=== PATIENT | female | born 1985 | race Caucasian/White ===

== ENCOUNTER 2022-12-02 09:29 | Outpatient (REF) | payer MEDICAID, SELFPAY ==
--- NOTE | ~2022-12-02 | XR_ITS ---
EXAMINATION: XR LUMBOSACRAL SPINE CLINICAL INFORMATION: Acute midline pain without sciatica. Sharp pain with certain movements. Patient states pain for 2 days. COMPARISON: None available. TECHNIQUE: Three views of the lumbosacral spine. FINDINGS: The vertebral bodies and posterior elements are normal. The disc spaces are preserved and the vertebral alignment is normal. The paraspinal soft tissues are normal. No spondylolisthesis. T-shaped IUD tilts toward the left of midline in the pelvis. XR/XR lumbar spine 2-3V IMPRESSION: Unremarkable examination.
== END 2022-12-02 09:30 | disposition home or self-care (01) ==
LOC: HO.HHCX 09:29
PROVIDERS: Visit Provider Emergency Medicine
DX: M54.50 Low back pain, unspecified (principal)
CPT/HCPCS: 72100

== ENCOUNTER 2022-12-04 10:36 | Outpatient (REF) | payer MEDICAID, SELFPAY ==
[2022-12-04 11:59] LABS: MANUAL DIFF FLAG NO
[2022-12-04 12:06] LABS: Basophils Percent Auto 0.4 % (0-2); Eosinophils Absolute Auto 0.2 X10*3/uL (0.0-0.4); Eosinophils Percent Auto 2.8 % (0-4); Hematocrit 45.3 % (37.0-47.0); Hemoglobin 15.2 g/dl (12.0-16.0); Imm Gran Abs Auto 0.03 X10*3/uL (0.00-0.03); Imm Gran Pct Auto 0.4 % (0.0-0.4); Lymphocytes Absolute Auto 2.2 X10*3/uL (1.2-4.9); Lymphocytes Percent Auto 27.3 % (20-40); Mean Corpuscular HGB Conc 33.6 g/dl (31.0-35.0); Mean Corpuscular Hemoglobin 31.3 pg (27.0-33.0); Mean Corpuscular Volume 93.2 fL (80.0-98.0); Mean Platelet Volume 10.4 fL (9.4-12.3); Monocytes Absolute Auto 0.6 X10*3/uL (0.1-1.2); Monocytes Percent Auto 7.5 % (2-11); Neutrophils Absolute Auto 4.9 x10*3/uL (2.0-8.3); Neutrophils Percent Auto 61.6 % (45-73); Platelet Count 270 X10*3/uL (160-400); Red Blood Count 4.86 X10*6/uL (4.20-5.50); Red Cell Distribution Width 12.7 % (11.0-16.0); White Blood Count 7.9 X10*3/uL (4.8-10.8)
[2022-12-04 12:17] LABS: Estimated Average Glucose 97 mg/dL; Hemoglobin A1C 107.5469 umol/L
[2022-12-04 13:01] LABS: Alanine Aminotransferase 13 U/L (0-31); Albumin Level 4.2 g/dL (3.5-5.0); Alkaline Phosphatase 68 U/L (39-117); Anion Gap 12 (12-20); Aspartate Amino Transferase 17 U/L (5-31); Bilirubin Total 0.2 mg/dL (0.0-1.0); Blood Urea Nitrogen 9 mg/dL (9-16); Calcium 9.5 mg/dL (8.4-10.2); Carbon Dioxide 23 mmol/L (22-29); Chloride 106 mmol/L (96-108); Cholesterol 186 mg/dL (<200); Estimated Glomerular Filt Rate > 60; Glucose Random 82 mg/dL (60-115); HDL Cholesterol 45 mg/dL (>40); LDL Cholesterol Calculated 126 mg/dL (<100); Potassium 3.9 mmol/L (3.3-5.1); Sodium 137 mmol/L (135-145); TSH reflex Free T4 1.01 uIU/mL (0.32-4.0); Total Protein 7.1 g/dL (6.5-8.0); Triglycerides 76 mg/dL (<150)
[2022-12-04 13:03] LABS: HBS Num1 5.89 mIU/mL (0-7.99); HBc Num1 0.07 S/CO (0.00-0.79); HBsAGNum1 0.28 S/CO (0.00-0.99); HIV AB/AG Nonreactive (Nonreactive); HIV Num 1 0.04 S/CO (0.00-0.99); Hepatitis B Core Antibody Nonreactive (Nonreactive); Hepatitis B Surface Antigen Negative (Negative); ~HepC Num1 0.04 S/CO (0.00-0.79); ~Hepatitis B Surface Antibody NONREACTIVE (Nonreactive); ~Hepatitis C Antibody Nonreactive (Nonreactive)
[2022-12-04 13:07] LABS: Syphilis Screen Nonreactive (Nonreactive)
[2022-12-04 17:13] LABS: CT PCR NOT DETECTED (Not Detect.); NG PCR NOT DETECTED (Not Detect.)
[2022-12-10 00:17] LABS: VITAMIN D (1,25 OH) D3 53 pg/mL; Vit D (1,25-Dihydroxy) Total 53 pg/mL (18-72); Vitamin D (1,25 OH) D2 <8 pg/mL
== END 2022-12-04 10:37 | disposition home or self-care (01) ==
LOC: HO.HHCL 10:36
PROVIDERS: Visit Provider Student in an Organized Health Care Education/Training Program
DX: Z00.00 Encounter for general adult medical examination without abnormal findings (principal)
CPT/HCPCS: 0353U; 80053; 80061; 82652; 83036; 84443; 85025; 86704; 86706; 86780; 86803; 87340; 87389

== ENCOUNTER 2023-01-06 17:40 | Emergency (ER) | payer MEDICAID, SELFPAY ==
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
[2023-01-06 17:51] VITALS: BP 125/75; PULSE 91; RESP 18; TEMP 37.2; O2SAT 97; BMI 25.2
== END 2023-01-06 18:58 | disposition home or self-care (01) ==
LOC: HO.ED 18:11
PROVIDERS: Emergency Provider Emergency Medicine; PCP Student in an Organized Health Care Education/Training Program
DX: S06.0X0A Concussion without loss of consciousness, initial encounter (principal); Y04.2XXA Assault by strike against or bumped into by another person, initial encounter; Y93.9 Activity, unspecified; Y92.89 Other specified places as the place of occurrence of the external cause; Y99.9 Unspecified external cause status
CPT/HCPCS: 99282

== ENCOUNTER 2023-07-05 16:03 | Emergency (ER) | payer MEDICAID, SELFPAY ==
--- NOTE | 2023-07-05 16:50 | ED_ITS ---
HPI - Animal Bite General Chief Complaint: Animal Bite Stated Complaint: dog bite Time Seen by Provider: 07/06/23 01:46 Source: patient Mode of arrival: ambulatory Limitations: no limitations History of Present Illness ED Provider: ERICKSON LAMBERT PA-C HPI narrative: 38-year-old female with past medical history significant for fibromyalgia, depression, anxiety, PTSD to the emergency department today for evaluation of dog bite sustained to left posterior thigh yesterday. She states that her neighbor's dog got off of the leash and ran up and bit the back of her left thigh. She does not personally know her neighbor and is unsure of whether or not the dog is fully vaccinated. She is requesting rabies vaccine. Her tetanus was updated approximately 1 year ago. Denies headache, fever, fatigue, dizziness. No other concerns at this time. Related Data Previous Rx's ?Medication ?Instructions ?Recorded amoxicillin 875 mg-potassium 1 tab PO BID 7 days #14 tabs 07/06/23 clavulanate 125 mg tablet Allergies Allergy/AdvReac Type Severity Reaction Status Date / Time No Known Allergies Allergy Verified 07/05/23 16:54 Review of Systems Review of Systems: Constitutional: No fever, chills, fatigue, night sweats, weight changes ENT/Mouth: No ear pain, hearing loss, nasal congestion, sinus pain, rhinorrhea, sore throat Eyes: No eye pain, swelling, redness, vision changes, discharge Cardio: No chest pain, palpitations, MARTINEZ, orthopnea, peripheral edema Pulm: No SOB, cough, sputum, wheezing, dyspnea, hemoptysis GI: No nausea, vomiting, hematemesis, abdominal pain, diarrhea, constipation, hematochezia, melena : No irregular bleeding, dysuria, frequency, urgency, hesitancy, hematuria, flank pain, urinary flow changes, urinary incontinence or retention MSK: No back pain, neck pain, joint pain, myalgias Skin: No lesions, rashes, +puncture wound to posterior left thigh Neuro: No weakness, numbness, paresthesias, LOC, dizziness, headache Psych: No anxiety/panic, depression, SI/HI, AH/VH All other systems reviewed and are negative. [facility] Past Medical History Attestation statement: The following information was validated with the patient. Source: old records reviewed and nursing notes reviewed Social History Social History Advance Directives: No Advance Directives Information Provided: Yes Physical Exam ED Vital Signs: Vital Signs - 24 hr 07/05/23 16:51 Temperature 98.0 F Pulse Rate 73 Respiratory Rate 16 Blood Pressure 136/73 Pulse Oximetry 98 Oxygen Delivery Method Room Air BMI result Body Mass Index 21.4 Vital signs stable, afebrile Const General: cooperative, healthy appearing, comfortable and no acute distress Orientation/consciousness: patient oriented x3 Limitations: no limitations HENMT Head: Yes normal to inspection, Yes No palpable skull fracture present, Yes normocephalic and Yes atraumatic Eyes General: appearance normal, both eyes and all related structures Conjunctivae: conjunctivae normal Sclerae: sclerae normal Pupils: Equal, round and reactive pupils present Neck Neck: Yes normal visual inspection, Yes full ROM, Yes no lymphadenopathy and Yes no meningeal signs Chest Chest palpation & inspection: normal inspection of the chest and normal palpation of entire chest wall Resp Effort & Inspection: normal respiratory effort and able to speak in complete sentences Auscultation: clear to auscultation bilaterally Cardio Rate: regular rate Rhythm: regular rhythm Skin Other: + puncture wound noted to proximal posterior left thigh with surrounding ecchymosis. No surrounding erythema. No active bleeding or discharge. Tender to palpation. No palpable warmth, fluctuance, deformity. Neuro General: patient oriented x3, gait normal, no meningeal signs and no focal motor deficits Cranial nerves: Yes Equal, round and reactive pupils present Gait exam (Neuro): Normal gait present Extrem Other: + see above Course Course Course Narrative: This is an RME: Additional HPI, ROS, PE not included below will be deferred to primary provider. RME assessment and note performed by: Deepa Jackson PA-C This is a [id number]-female, with a hx of fibromyalgia, depression, anxiety, PTSD here, who presents to the ER with complaints of dog bite to left posterior thigh yesterday. Function noted to posterior thigh, no active bleeding. Patient is unsure of vaccine status of the dog. Plan: Rabies series, abx Reevaluation(s) Reevaluation #1: 3057-- Rabies vaccination and immunoglobulin administered by RN. I did inject 2 mL of immunoglobulin directly into puncture wound. Patient will be given a dose of Augmentin in ED for prophylactic treatment. I am not concerned for cellulitis or deeper infection at this time. She has been provided with information caryl lowery outpatient follow-up for subsequent rabies vaccinations. Patient has remained stable throughout ED visit today. Discussed worrisome signs and symptoms and when to return to the ED. All questions answered at this time. Patient is agreeable with disposition and stable for discharge. Medications Administered Discontinued Medications Generic Name Dose Route Start Last Admin Trade Name Freq PRN Reason Stop Dose Admin Rabies Vaccine Human Diploid Cell 1 ml 07/06/23 01:53 07/06/23 02:07 Rabies Vaccine, Human Diploid (Imovax) 1 Ml Vial IM 07/06/23 01:54 1 ml .ONCE ONE Administration Medical Decision Making Medical Decision Making MDM Narrative: 38-year-old female with no significant past medical history presents to the emergency department today for evaluation of dog bite sustained to left posterior thigh yesterday. Vital signs are stable. Afebrile. She is nontoxic- appearing and in no acute distress. On exam, there are 2 puncture wounds noted to proximal posterior left thigh with surrounding ecchymoses. No surrounding erythema. Tender to palpation. No palpable warmth or fluctuance. No active bleeding or discharge. she is ambulating with steady gait. Patient is A&O x3 and acting appropriately. No excessive salivation. Differential diagnosis includes dog bite. Unlikely cellulitis, abscess, fracture, osteomyelitis. Plan for rabies vaccination/immune globulin and disposition. Differential Diagnosis Differential Diagnoses: The differential diagnosis associated with the presentation includes as above. Admission/Observation not indicated. Prescription Management I considered prescription management with: Pain Medication and Antibiotic (augmentin) Social Determinants Patient?s care significantly limited by Social Determinants of Health including: Other Social Determinant of Health Critical Care Time Critical Care Time Critical Care Time: Yes Total Critical Care Time: 35 Attestation: Critical care time in the amount of 35 minutes has been provided to the patient in terms of direct patient care, frequent reevaluation, review and interpretation of medical data and results, and management of potentially life- threatening conditions. This is all outside of any medical procedures. Discharge Plan Discharge Clinical Impression: Dog bite of thigh, Encounter for prophylactic administration of rabies immune globulin Patient Disposition: Home, Self-Care Instructions: Animal Bite (ED), Rabies (ED) Additional Instructions: You were evaluated in the ED today for evaluation of dog bite. You received a rabies vaccine today. You were given instructions on subsequent doses and follow-up. Your tetanus is already up-to-date and was not given today. Follow-up with PCP as needed. Augmentin is an antibiotic that has been sent to your pharmacy. Take this as prescribed for the next 7 days to prevent infection. Do not stop taking this early or skip any doses as this may cause infection to persist or worsen. [place] with [place] [facility] Upon discharge from the ED today, you will be contacted by the Infusion Center to schedule your follow up Rabies vaccines. You will need a total of 3 more injections. If for some reason you do not receive a call, please call the Infusion Center directly at [phone]. Follow up with your primary care provider after completion of the vaccine to have a titer drawn to ensure the vaccines effectiveness. Prescriptions: New amoxicillin-pot clavulanate 875-125 mg tablet 1 tab PO BID 7 Days Qty: 14 0RF Referrals: Emilia eMna MD [Primary Care Provider] - Print Language: Occitan
[2023-07-05 16:51] VITALS: BP 136/73; PULSE 73; RESP 16; TEMP 36.7; O2SAT 98; BMI 21.4
[2023-07-06] MEDS: Rabies Vaccine, Human Diploid (Imovax) 1 ML VIAL IM (02:07)
[2023-07-06] MEDS: Rabies Immune Globulin/PF 900 UNIT/3 ML VIAL 962 UNIT IM (02:14)
[2023-07-06] MEDS: Amoxicillin/Potassium Clav 875 MG TABLET PO (02:25)
[2023-07-06 02:38] VITALS: BP 118/63; PULSE 61; RESP 16; TEMP 36.7; O2SAT 98
== END 2023-07-06 02:52 | disposition home or self-care (01) ==
PROVIDERS: Emergency Provider Emergency Medicine Emergency Medical Services; PCP Student in an Organized Health Care Education/Training Program
DX: S71.152A Open bite, left thigh, initial encounter (principal); W54.0XXA Bitten by dog, initial encounter; Y93.9 Activity, unspecified; Y92.414 Local residential or business street as the place of occurrence of the external cause; Y99.9 Unspecified external cause status; Z20.3 Contact with and (suspected) exposure to rabies; Z23 Encounter for immunization
CPT/HCPCS: 90375; 90471; 90675; 96372; 99282; 99284

== ENCOUNTER 2023-07-29 10:00 | Outpatient (RCR) | payer MEDICAID, SELFPAY ==
[2023-07-11 13:04] VITALS: BMI 21.6
[2023-07-11 13:07] VITALS: BP 102/75; PULSE 96; RESP 18; TEMP 37.3; O2SAT 97
[2023-07-11] MEDS: Rabies Vaccine, Human Diploid (Imovax) 1 ML VIAL IM (13:13)
[2023-07-18] MEDS: Rabies Vaccine, Human Diploid (Imovax) 1 ML VIAL IM (14:07)
[2023-07-18 14:09] VITALS: BP 102/60; PULSE 74; RESP 16; TEMP 37.2; O2SAT 97
[2023-07-29 10:05] VITALS: BP 102/63; PULSE 81; RESP 16; TEMP 37.2; O2SAT 96
[2023-07-29] MEDS: Rabies Vaccine, Human Diploid (Imovax) 1 ML VIAL IM (10:06)
== END 2023-07-29 12:03 | disposition home or self-care (01) ==
LOC: HO.INF 10:00
PROVIDERS: Visit Provider Emergency Medicine Emergency Medical Services
DX: Z20.3 Contact with and (suspected) exposure to rabies (principal); S71.1 Open wound of thigh; W54.0XXD Bitten by dog, subsequent encounter
CPT/HCPCS: 90471; 90675

== ENCOUNTER 2023-09-16 11:49 | Outpatient (REF) | payer MEDICAID, SELFPAY ==
[2023-09-16 14:11] LABS: HCG Quantitative < 2 mIU/mL; Vitamin D 25-OH Total 41.2 ng/mL (>30)
[2023-09-17 03:47] LABS: CT PCR NOT DETECTED (Not Detect.); NG PCR NOT DETECTED (Not Detect.)
[2023-09-17 07:33] LABS: HBc Num1 0.18 S/CO (0.00-0.79); HBsAGNum1 0.25 S/CO (0.00-0.99); HIV AB/AG Nonreactive (Nonreactive); HIV Num 1 0.06 S/CO (0.00-0.99); Hepatitis B Core Antibody Nonreactive (Nonreactive); Hepatitis B Surface Antigen Negative (Negative); ~HepC Num1 0.09 S/CO (0.00-0.79); ~Hepatitis B Surface Antibody REACTIVE (Nonreactive); ~Hepatitis C Antibody Nonreactive (Nonreactive)
[2023-09-17 11:24] LABS: Bacterial Vaginosis PCR POSITIVE (Negative); Candida Group PCR NOT DETECTED (Not Detect); Candida glab krusei PCR NOT DETECTED (Not Detect); Trichomonas vaginalis PCR NOT DETECTED (Not Detect)
[2023-09-17 12:23] LABS: RPR Rapid Plasma Reagin NON-REACTIVE (NON-REACTIVE)
== END 2023-09-16 11:50 | disposition home or self-care (01) ==
LOC: HO.HHCL 11:49
PROVIDERS: Visit Provider Emergency Medicine
DX: N76.0 Acute vaginitis (principal); B96.89 Other specified bacterial agents as the cause of diseases classified elsewhere; N89.8 Other specified noninflammatory disorders of vagina
CPT/HCPCS: 0352U; 82306; 84702; 86592; 86704; 86706; 86803; 87086; 87340; 87389; 87491; 87591

== ENCOUNTER 2024-02-09 17:37 | Outpatient (REF) | payer MEDICAID, SELFPAY ==
[2024-02-10 05:14] LABS: CT PCR NOT DETECTED (Not Detect.); NG PCR NOT DETECTED (Not Detect.)
== END 2024-02-09 17:38 | disposition home or self-care (01) ==
LOC: HO.HHCLNP 17:37
PROVIDERS: Visit Provider Internal Medicine Geriatric Medicine
DX: R35.0 Frequency of micturition (principal)
CPT/HCPCS: 87086; 87491; 87591

== ENCOUNTER 2024-02-19 13:35 | Outpatient (REF) | payer MEDICAID, SELFPAY ==
[2024-02-20 02:06] LABS: CT PCR NOT DETECTED (Not Detect.); NG PCR NOT DETECTED (Not Detect.)
[2024-02-20 08:36] LABS: Bacterial Vaginosis PCR POSITIVE (Negative); Candida Group PCR NOT DETECTED (Not Detect); Candida glab krusei PCR NOT DETECTED (Not Detect); Trichomonas vaginalis PCR NOT DETECTED (Not Detect)
== END 2024-02-19 13:36 | disposition home or self-care (01) ==
LOC: HO.HHCLNP 13:35
PROVIDERS: Visit Provider Family Medicine
DX: N89.8 Other specified noninflammatory disorders of vagina (principal)
CPT/HCPCS: 81515; 87086; 87491; 87591

== ENCOUNTER 2024-04-05 13:30 | Outpatient (AMB) | payer MEDICAID, SELFPAY ==
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
[2024-04-05 14:06] VITALS: BP 110/60; PULSE 66; RESP 19; O2SAT 98
--- OUTSIDE RECORDS SUMMARY | 2024-04-05 15:28 | XMS_ITS | Encounter Summary ---
Author Organization [facility] Address [facility] [place] [address] Care Team Providers Care Waterproof Bag Cutting Machine Operator Name Role Phone Scotty Cruz MD Primary Care Provider Unavailab Teri Toribio MD Primary Care Provider Un available Encounter Details Date Type Department Care Team Description 09/08/2013 NETWORK INFRASTRUCTURE ARCHITECT/[facility] Report Medical Records [address] [place] [address] Abstract, Provider Social History Tobacco Use Types Packs/Day Years Used Date Smoking Tobacco: Every Day Cigarettes 0.3 16 Alcohol Use Standard Drinks/Week Comments Yes 0 (1 standard drink = 0.6 oz pur e alcohol) Sex Assigned at Date Recorded Not on file documented as of this encounter Plan of Treatment Not on file documented as of this encounter Visit Diagnoses Not on filedocumented in this encounter Care Teams Waterproof Bag Cutting Machine Operator Relationship Specialty Start Date End Date Scotty Cruz MD PCP - General Internal Medicine 01/21/12 01/20/14 Teri Doran MD PCP - General Internal Medicine 01/21/14 documented as of this encounter
--- OUTSIDE RECORDS SUMMARY | 2024-04-05 15:28 | XMS_ITS | Encounter Summary ---
Author Organization [facility] Address [address] [place] [address] Care Team Providers Care Rubber Covering Machine Operator Name Role Phone Scotty Cruz MD Primary Care Provider Teri Manirque MD Primary Care Provider Un available Reason for Visit * Reason Onset Date Comments Form 11/15/2013 Encounter Details Date Type Department Care Team Description 11/15/2013 Telephone Medicine/Pediatrics - [address] [phone] Scotty Cruz MD Form Social History Tobacco Use Types Packs/Day Years Used Date Smoking Tobacco: Every Day Cigarettes 0.3 16 Alcohol Use Standard Drinks/Week Comments Yes 0 (1 standard drink = 0.6 oz pur e alcohol) Sex Assigned at Date Recorded Not on file documented as of this encounter Miscellaneous Notes * Telephone Encounter - Scotty Cruz MD - 11/15/2013 10:09 AM EDT Form completed. * Telephone Encounter - Carol Forbes - 11/15/2013 9:27 AM EDT Pt walked in needing letter indicated in 11/11 encounter, pt still waiting for form and letter (starting 10/19/13 stating mentally and emotionally incapacitated to go to work ), pt states she needs today . 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
--- OUTSIDE RECORDS SUMMARY | 2024-04-05 15:28 | XMS_ITS | Encounter Summary ---
Author Organization [facility] Address [facility] [place] [address] Care Team Providers Care Electric Transfer Operator Name Role Phone Teri Doran MD Primary Care Provider Un available Encounter Details Date Type Department Care Team Description 01/31/2015 RELIEF COOK/[facility] Report Medical Records [address] [place] [address] Abstract, Provider Social History Tobacco Use Types Packs/Day Years Used Date Smoking Tobacco: Some Days Cigarettes 0.3 16 Alcohol Use Standard Drinks/Week Comments No 0 (1 standard drink = 0.6 oz pur e alcohol) Sex Assigned at Date Recorded Not on file documented as of this encounter Plan of Treatment Not on file documented as of this encounter Visit Diagnoses Not on filedocumented in this encounter Care Teams Electric Transfer Operator Relationship Specialty Start Date End Date Teri Doran MD PCP - General Internal Medicine 01/21/14 documented as of this encounter
--- OUTSIDE RECORDS SUMMARY | 2024-04-05 15:28 | XMS_ITS | Encounter Summary ---
Author Organization [facility] Address [facility] [place] [address] Care Team Providers Care Project Administrator Name Role Phone Teri Doran MD Primary Care Provider Un available Encounter Details Date Type Department Care Team Description 11/21/2015 [facility] Medical Records [address] [place] [address] Abstract, Provider Social History Tobacco Use Types [...] on filedocumented in this encounter Care Teams Project Administrator Relationship Specialty Start Date End Date Teri Doran MD PCP - General Internal Medicine 01/21/14 documented as of this encounter
--- OUTSIDE RECORDS SUMMARY | 2024-04-05 15:28 | XMS_ITS | Encounter Summary ---
Author Organization [facility] Address [facility] [place] [address] Care Team Providers Care Dental Services Director Name Role Phone Teri Doran MD Primary Care Provider Un available Encounter Details Date Type Department Care Team Description 05/17/2015 Fifth Grade Teacher Report Medical Records [address] [place] [address] Waqas Chase MD Social History Tobacco Use Types Packs/Day Years [...] on filedocumented in this encounter Care Teams Dental Services Director Relationship Specialty Start Date End Date Teri Doran MD PCP - General Internal Medicine 01/21/14 documented as of this encounter
--- OUTSIDE RECORDS SUMMARY | 2024-04-05 15:28 | XMS_ITS | Encounter Summary ---
Author Organization [facility] Address [facility] [place] [address] Care Team Providers Care Plate Worker Helper Name Role Phone Scotty Curz MD Primary Care Provider Unavailab Teri Toribio MD Primary Care Provider Un available Encounter Details Date Type Department Care Team Description 05/28/2013 DENSITY CONTROL PUNCHER/[facility] Report Medical Records [address] [place] [address] Abstract, Provider Social History Tobacco Use Types [...] on filedocumented in this encounter Care Teams Plate Worker Helper Relationship Specialty Start Date End Date Scotty Cruz MD PCP - General Internal Medicine 01/21/12 01/20/14 Teri Doran MD PCP - General Internal Medicine 01/21/14 documented as of this encounter
--- OUTSIDE RECORDS SUMMARY | 2024-04-05 15:28 | XMS_ITS | Encounter Summary ---
Author Organization [facility] Address [facility] [place] [address] Care Team Providers Care Account Manager Employee Benefits Name Role Phone Teri Doran MD Primary Care Provider Un available Encounter Details Date Type Department Care Team Description 09/14/2014 INTERNATIONAL MARKETING MANAGER/[facility] Report Medical Records [address] [place] [address] Abstract, Provider Social History Tobacco Use Types [...] on filedocumented in this encounter Care Teams Account Manager Employee Benefits Relationship Specialty Start Date End Date Teri Doran MD PCP - General Internal Medicine 01/21/14 documented as of this encounter
--- OUTSIDE RECORDS SUMMARY | 2024-04-05 15:28 | XMS_ITS | Encounter Summary ---
Author Organization [facility] Address [address] [place] [address] Care Team Providers Care Railroad Design Consultant Name Role Phone Scotty Cruz MD Primary Care Provider Teri Manrique MD Primary Care Provider Un available Reason for Visit * Reason Onset Date Comments Medication 11/10/2013 Encounter Details Date Type Department Care Team Description 11/10/2013 Telephone Medicine/Pediatrics - [address] [phone] Scotty Cruz MD Medication Social History Tobacco Use Types Packs/Day Years Used Date Smoking Tobacco: Every Day Cigarettes 0.3 16 Alcohol Use Standard Drinks/Week Comments Yes 0 (1 standard drink = 0.6 oz pur e alcohol) Sex Assigned at Date Recorded Not on file documented as of this encounter Miscellaneous Notes * Telephone Encounter - Lauren Ramos M.A. - 11/10/2013 10:59 AM EDT FYI to Dr. Cruz. * Telephone Encounter - Lashonda Dobson - 11/10/2013 10:47 AM EDT Patient has contract for her pain meds. Her normal pharmacy does not have her oxycodone 5/325 in stock. She normally fills at [facility]. She is bringing her prescription to [facility]. FYI documented in this encounter Plan of Treatment Not on file documented as of this encounter Visit Diagnoses Not on filedocumented in this encounter Care Teams Railroad Design Consultant Relationship Specialty Start Date End Date Scotty Cruz MD PCP - General Internal Medicine 01/21/12 01/20/14 Teri Doran MD PCP - General Internal Medicine 01/21/14 documented as of this encounter
--- OUTSIDE RECORDS SUMMARY | 2024-04-05 15:28 | XMS_ITS | Encounter Summary ---
Author Organization [facility] Address [address] [place] [address] Care Team Providers Care Pension Fund Manager Name Role Phone Scotty Cruz MD Primary Care Provider Unavailab Teri Toribio MD Primary Care Provider Un available Encounter Details Date Type Department Care Team Description 01/10/2014 Orders Only Medicine/Pediatrics - [address] [phone] Scotty Cruz MD Chronic back pain (Primary Dx) Social History Tobacco Use Types Packs/Day Years Used Date Smoking Tobacco: Every Day Cigarettes 0.3 16 Alcohol Use Standard Drinks/Week Comments No 0 (1 standard drink = 0.6 oz pur e alcohol) Sex Assigned at Date Recorded Not on file documented as of this encounter Plan of Treatment Not on file documented as of this encounter Visit Diagnoses Diagnosis Chronic back pain- Primary Backache, unspecified documented in this encounter Care Teams Pension Fund Manager Relationship Specialty Start Date End Date Scotty Cruz MD PCP - General Internal Medicine 01/21/12 01/20/14 Teri Doran MD PCP - General Internal Medicine 01/21/14 documented as of this encounter
--- OUTSIDE RECORDS SUMMARY | 2024-04-05 15:28 | XMS_ITS | Encounter Summary ---
Author Organization [facility] Address [facility] [place] [address] Care Team Providers Care Song Plugger Name Role Phone Scotty Cruz MD Primary Care Provider Unavailab Teri Toribio MD Primary Care Provider Un available Encounter Details Date Type Department Care Team Description 07/20/2012 R D Manager Report Medical Records [address] [place] [address] Social History Tobacco Use Types Packs/Day Years [...] on filedocumented in this encounter Care Teams Song Plugger Relationship Specialty Start Date End Date Scotty Cruz MD PCP - General Internal Medicine 01/21/12 01/20/14 Teri Doran MD PCP - General Internal Medicine 01/21/14 documented as of this encounter
--- OUTSIDE RECORDS SUMMARY | 2024-04-05 15:28 | XMS_ITS | Encounter Summary ---
Author Organization [facility] Address [address] [place] [address] Care Team Providers Care Linking Machine Operator Name Role Phone Teri Doran MD Primary Care Provider Un available Encounter Details Date Type Department Care Team Description 04/28/2018 Casino Floorperson Report Medical Records [address] [place] [address] Services, [facility] [address] [place] [address] Social History Tobacco Use Types Packs/Day Years Used Date Smoking Tobacco: Some Days Cigarettes 0.3 16 Smokeless Tobacco: Former Alcohol Use Standard Drinks/Week Comments No 0 (1 standard drink = 0.6 oz pur e alcohol) Sex Assigned at Date Recorded Not on file documented as of this encounter Plan of Treatment Not on file documented as of this encounter Visit Diagnoses Not on filedocumented in this encounter Care Teams Linking Machine Operator Relationship Specialty Start Date End Date Teri Doran MD PCP - General Internal Medicine 01/21/14 documented as of this encounter
--- OUTSIDE RECORDS SUMMARY | 2024-04-05 15:28 | XMS_ITS | Encounter Summary ---
Author Organization [facility] Address [facility] [place] [address] Care Team Providers Care Nissan Sales Consultant Name Role Phone Teri Doran MD Primary Care Provider Un available Encounter Details Date Type Department Care Team Description 02/04/2014 SHERIFF'S OFFICER/[facility] Report Medical Records [address] [place] [address] Abstract, Provider Social History Tobacco Use Types [...] on filedocumented in this encounter Care Teams Nissan Sales Consultant Relationship Specialty Start Date End Date Teri Doran MD PCP - General Internal Medicine 01/21/14 documented as of this encounter
--- OUTSIDE RECORDS SUMMARY | 2024-04-05 15:28 | XMS_ITS | Encounter Summary ---
Author Organization [facility] Address [address] [place] [address] Care Team Providers Care Latex Dipper Name Role Phone Teri Doran MD Primary Care Provider Un available Reason for Visit * Reason Onset Date Comments Medication 07/11/2016 Encounter Details Date Type Department Care Team Description 07/11/2016 Telephone Physiatry - [place] [address] [place] [address] Shady Lee, Medication Social History Tobacco Use Types Packs/Day Years Used Date Smoking Tobacco: Some Days Cigarettes 0.3 16 Alcohol Use Standard Drinks/Week Comments No 0 (1 standard drink = 0.6 oz pur e alcohol) Sex Assigned at Date Recorded Not on file documented as of this encounter Miscellaneous Notes * Telephone Encounter - Tyra Glasgow - 07/11/2016 1:40 PM EDT Error please close documented in this encounter Plan of Treatment Not on file documented as of this encounter Visit Diagnoses Not on filedocumented in this encounter Care Teams Latex Dipper Relationship Specialty Start Date End Date Teri Doran MD PCP - General Internal Medicine 01/21/14 documented as of this encounter
== END 2024-04-05 14:17 | disposition home or self-care (01) ==
PROVIDERS: PCP Student in an Organized Health Care Education/Training Program; Visit Provider Nurse Practitioner Psychiatric/Mental Health
DX: Z51.81 Encounter for therapeutic drug level monitoring (principal)

== ENCOUNTER → 2024-04-05 13:30 | Outpatient (BNVA) | payer MEDICAID, SELFPAY | PROVIDERS: PCP Student in an Organized Health Care Education/Training Program; Visit Provider Nurse Practitioner Psychiatric/Mental Health | DX: F14.10 Cocaine abuse, uncomplicated (principal) | CPT/HCPCS: 80307 ==

== ENCOUNTER 2024-04-05 19:46 | Emergency (ER) | payer MEDICAID, SELFPAY ==
--- NOTE | 2024-04-05 | ECG_ITS ---
Test Reason : PALPITATIONS Blood Pressure : */* mmHG Vent. Rate : 91 BPM Atrial Rate : 91 BPM P-R Int : 148 ms QRS Dur : 82 ms QT Int : 338 ms P-R-T Axes : 69 52 43 degrees QTcB Int : 415 ms Normal sinus rhythm Normal ECG No previous ECGs available Referred By: Rajendra Lee Electronically Signed By: POPEYE BARAKAT
[2024-04-05 19:54] VITALS: BP 106/64; PULSE 104; O2SAT 100
[2024-04-05 20:03] VITALS: BP 111/72; PULSE 90; RESP 20; TEMP 36.3; O2SAT 99; BMI 28.3
--- NOTE | 2024-04-05 20:04 | ED_ITS ---
HPI - Arrhythmia/Palpitations General Chief Complaint: Dyspnea Stated Complaint: SOB AND PALPITPATIONS Time Seen by Provider: 04/05/24 19:52 Source: patient Mode of arrival: ambulatory Limitations: no limitations History of Present Illness ED Provider: HPI narrative: Patient's with increased anxiety under increased stress was feeling very anxious palpitation around 19:00 window to walk-in clinic patient does have a court date next week for her daughter and has a DCF visit this week on arrival patient was sinus rhythm heart rate 90 beats per minute feeling much better wants to go back home Related Data Previous Rx's ?Medication ?Instructions ?Recorded amoxicillin 875 mg-potassium 1 tab PO BID 7 days #14 tabs 07/06/23 clavulanate 125 mg tablet Allergies Allergy/AdvReac Type Severity Reaction Status Date / Time No Known Allergies Allergy Verified 04/05/24 20:07 Review of Systems Review of Systems: Yes all other systems are reviewed and are negative [facility] Social History Social History Advance Directives: No Advance Directives Information Provided: No Physical Exam Vital Signs: Vital Signs: Last Vital Signs Temp 97.4 F 04/05/24 20:29 Pulse 90 04/05/24 20:29 Resp 20 04/05/24 20:29 BP 111/72 04/05/24 20:29 Pulse Ox 99 04/05/24 20:29 O2 Del Method Room Air 04/05/24 20:29 BMI result Body Mass Index 28.3 Appearance: Alert. Oriented X3. No acute distress. Anxious Eyes: PERRLA, No Nystagmus ENT: Pharynx normal. Oral Mucosa moist Neck: Normal inspection. Neck supple. CVS: Normal heart rate and rhythm. Pulses normal. Respiratory: No respiratory distress. Equal air entry bilateral, no wheezing/rales/rhonchi Abdomen: Soft and nontender. Bowel sounds are present, no mass palpable, no CVA tenderness Skin: Skin warm and dry. Normal skin color. Normal skin turgor. Extremities: No lower extremity edema. No calf tenderness Neuro: Oriented X 3. No motor deficit. No sensory deficit.No cerebellar signs , cranial nerves II-XII intact Medical Decision Making Medical Decision Making MDM Narrative: Patient's anxiety and palpitation normal sinus rhythm at this time patient is feel relax will like to go home and follow with therapist Independent Interpretation I performed an independent interpretation of an: EKG Interpretation: Normal sinus rhythm ventricular rate 91 beats per minute normal intervals normal axis no acute STT wave changes no acute ischemia Discharge Plan Discharge Clinical Impression: Anxiety Patient Disposition: Home, Self-Care Instructions: Anxiety (ED) Additional Instructions: Continue to take your medication and follow up with your PCP Prescriptions: No Action amoxicillin-pot clavulanate 875-125 mg tablet 1 tab PO BID 7 Days Qty: 14 0RF Interventions: ED Discharge Assessment Last Done: 04/05/24 20:29 Discharge Date/Time: 04/05/24 20:30 Print Language: East Timorese
--- NOTE | 2024-04-05 20:16 | PC.NURSE ---
to bedside evaluating patient. Patient reports that her palpitations have stopped. Anxiety has been high this week due to upcoming court date and DCF/visitation appointment tomorrow. Has been living in a retirement on [facility] in [place] for 3 years, will be moving out within the next 6 months. Lives there with her 18 year old son. EKG unremarkable. Denies pain. Per , plan to discharge home. Curfew at 9pm for retirement.
[2024-04-05 20:29] VITALS: BP 111/72; PULSE 90; RESP 20; TEMP 36.3; O2SAT 99
== END 2024-04-05 20:30 | disposition home or self-care (01) ==
LOC: HO.ED 20:28
PROVIDERS: Emergency Provider Internal Medicine; PCP Student in an Organized Health Care Education/Training Program
DX: F41.9 Anxiety disorder, unspecified (principal); R06.02 Shortness of breath; R00.2 Palpitations
CPT/HCPCS: 93005; 99283

== ENCOUNTER → 2024-04-05 20:02 | Outpatient (BNV) | payer MEDICAID, SELFPAY | PROVIDERS: Emergency Provider Internal Medicine; PCP Student in an Organized Health Care Education/Training Program; Visit Provider Internal Medicine | DX: R00.2 Palpitations (principal) | CPT/HCPCS: 93010 ==

== ENCOUNTER 2024-04-14 14:13 | Outpatient (REF) | payer MEDICAID, SELFPAY ==
--- NOTE | ~2024-04-14 | XR_ITS ---
EXAMINATION: XR KNEE, LEFT CLINICAL INFORMATION: PAIN COMPARISON: Atraumatic left knee pain TECHNIQUE: Three views of the left knee. FINDINGS: No fracture or joint effusion. Alignment is anatomic. Joint spaces are maintained. No abnormal soft tissue calcification. XR/XR knee LT 3V IMPRESSION: Normal left knee. Electronically signed by: Chase Willis MD 04/14/2024 02:40 PM EST
--- OUTSIDE RECORDS SUMMARY | 2024-04-14 17:09 | XMS_ITS | Encounter Summary ---
Author Organization [facility] Address [facility] [place] [address] Care Team Providers Care Sql Programmer Analyst Name Role Phone Teri Doran MD Primary Care Provider Un available Encounter Details Date Type Department Care Team Description 02/04/2014 NUMERICAL CONTROL TOOL PROGRAMMER/[facility] Report Medical Records [address] [place] [address] Abstract, Provider Social History Tobacco Use Types [...] on filedocumented in this encounter Care Teams Sql Programmer Analyst Relationship Specialty Start Date End Date Teri Doran MD PCP - General Internal Medicine 01/21/14 documented as of this encounter
--- OUTSIDE RECORDS SUMMARY | 2024-04-14 17:09 | XMS_ITS | Encounter Summary ---
Author Organization [facility] Address [address] [place] [address] Care Team Providers Care Vp Security Name Role Phone Scotty Cruz MD Primary Care Provider Unavailab Teri Toribio MD Primary Care Provider Un available Encounter Details Date Type Department Care Team Description 01/10/2014 Orders Only Medicine/Pediatrics - [address] [phone] Scotty Cruz MD Chronic back pain (Primary [...] unspecified documented in this encounter Care Teams Vp Security Relationship Specialty Start Date End Date Scotty Cruz MD PCP - General Internal Medicine 01/21/12 01/20/14 Teri Doran MD PCP - General Internal Medicine 01/21/14 documented as of this encounter
--- OUTSIDE RECORDS SUMMARY | 2024-04-14 17:09 | XMS_ITS | Encounter Summary ---
Author Organization [facility] Address [address] [place] [address] Care Team Providers Care Mva Reactor Operator Head Name Role Phone Teri Doran MD Primary Care Provider Un available Encounter Details Date Type Department Care Team Description 06/15/2018 Release of Information Medical Records [address] [place] [address] Abstract, Provider Social History Tobacco Use Types [...] on filedocumented in this encounter Care Teams Mva Reactor Operator Head Relationship Specialty Start Date End Date Teri Doran MD PCP - General Internal Medicine 01/21/14 documented as of this encounter
--- OUTSIDE RECORDS SUMMARY | 2024-04-14 17:09 | XMS_ITS | Encounter Summary ---
Author Organization [facility] Address [facility] [place] [address] Care Team Providers Care Software Applications Developer Name Role Phone Scotty Cruz MD Primary Care Provider Unavailab Teri Toribio MD Primary Care Provider Un available Encounter Details Date Type Department Care Team Description 05/28/2013 SOLAR THERMAL TECHNICIAN/[facility] Report Medical Records [address] [place] [address] Abstract, Provider Social History Tobacco Use Types [...] on filedocumented in this encounter Care Teams Software Applications Developer Relationship Specialty Start Date End Date Scotty Cruz MD PCP - General Internal Medicine 01/21/12 01/20/14 Teri Doran MD PCP - General Internal Medicine 01/21/14 documented as of this encounter
--- OUTSIDE RECORDS SUMMARY | 2024-04-14 17:09 | XMS_ITS | Encounter Summary ---
Author Organization [employer] Address [address] [facility] 7t [place] [address] Care Team Providers Care Bow Maker Gift Wrapping Name Role Phone Emilia Mena MD Primary Care Pro vider Reason for Visit * Reason Comments Cough Encounter Details Date Type Department Care Team ([facility] st Contact Info) Description 04/05/2024 6:00 PM EST Office Visit [facility] [address] [place] [address] Nancy Mcbride MD [address] [place], [place] [phone] Viral URI with cough (Primary Dx); Sore throat Social History Tobacco Use Types Packs/Day Years Used Date Smoking Tobacco: Every Day Cigarettes 1 27 Passive Smoke Exposure: Current Smokeless Tobacco: Never Comments:Started smoking 10 years of age ,smoking 10 to 20 cig a day ,smoking for 27 years , PQT a day 20.25 pack-years. Alcohol Use Standard Drinks/Week Comments Never 0 (1 standard drink = 0.6 oz pur e alcohol) Depression Answer Date Recorded Patient Health Questionnaire-9 Score 13 03/16/2024 Patient Health Questionnaire-9 Score 13 03/16/2024 Last PHQ-9: Questionnaire Data Not on file 0 03/16/2024 Housing Stability Answer Date Recorded What is your housing situation today? I do not have housing (Staying with others, in a hotel, in a nursing home, living outside on the street, on a beach, in a car, or in a park 11/20/[address] you li ve. Do you have problems with any of the following? Pests such as bugs, ants, or mice 11/20/2022 Food Insecurity Answer Date Recorded Within the past 12 months, y ou worried that your food would run out before you got money to buy more: Sometimes True 2023 Within the past 12 months,th e food you bought just didn't last and you didn't have enough money to get more: Sometimes True 04/01/2023 Transportation Answer Date Recorded In the past 12 months, has l ack of transportation kept you from medical appts, meetings, work or from getting things needed for daily living? Yes, it has kept me from medical appointments or getting medications. 04/01/2023 Utilities Answer Date Recorded In the past 12 months, has t he electric, gas, oil or water company threatened to shut off services in your home? No 12/02/2022 Depression Answer Date Recorded Patient Health Questionnaire-2 Score 3 03/16/2024 Comments No Sex and Gender Information Value Date Recorded Sex Assigned at Female 09/16/2022 2:23 PM EDT Legal Sex Female 2:22 PM EDT Gender Identity Female 09/16/2022 2:23 PM EDT Sexual Orientation Bisexual 12/04/2022 9: 43 AM EDT documented as of this encounter Last Filed Vital Signs Vital Sign Reading Time Taken Comments Blood Pressure 129/92 04/05/2024 6:16 PM EST Pulse 105 04/05/2024 6:16 PM EST Temperature 36.8 ??C (98.2 ??F) 04/05/2024 6:16 PM ES T Respiratory Rate 21 04/05/2024 6:16 PM EST Oxygen Saturation 99% 04/05/2024 6:16 PM EST Inhaled Oxygen Concentration - - Weight 60.3 kg (133 lb) 04/05/2024 6:16 PM EST Height 149.9 cm (4' 11 ) 04/05/2024 6:16 PM EST Body Mass Index 26.86 04/05/2024 6:16 PM EST documented in this encounter Progress Notes * Nancy Mcbride MD - 04/05/2024 6:00 PM EST Subjective Patient ID: Alie Kearney is a 38 y.o. female who presents for Cough. Cough This is a new problem. The current episode started in the past 7 days. The cough is Non-productive.Associated symptoms include myalgias and nasal congestion. Pertinent negatives include no chest pain, chills, ear congestion, ear pain, fever, headaches, heartburn, hemoptysis, postnasal drip, rash, rhinorrhea, sore throat, shortness of breath, sweats, weight loss or wheezing. Associated symptoms comments: Subjective fever. . The symptoms are aggravated by cold air. Risk factors for lung disease include smoking/tobacco exposure. Son has similar symptoms. Patient Active Problem List Diagnosis Asthma Cervical intraepithelial neoplasia grade 2 Posttraumatic stress disorder Diabetes, gestational Fibromyalgia Insomnia Tobacco abuse disorder Hemorrhoids GATO (generalized anxiety disorder) Health care maintenance [facility] problems Upper respiratory symptom Moderate depressive disorder Panic attacks Current Outpatient Medications on File Prior to Visit Medication Sig Dispense Refill albuterol 108 (90 Base) MCG/ACT inhaler Inhale 1 puff every 6 (six) hours if needed for wheezing. 18 g 2 DULoxetine (Cymbalta) [address] capsule TAKE 1 CAPSULE BY MOUTH EVERY DAY IN THE MORNING 90 capsule 0 Levonorgestrel 20 MCG/DAY intrauterine device 1 each by Intrauterine route. loratadine (Claritin) 10 MG tablet Take 1 tablet (10 mg) by mouth Once per day. 30 tablet 0 pregabalin (Lyrica) 300 MG capsule TAKE 1 CAPSULE BY MOUTH TWICE DAILY 60 capsule 2 topiramate (Topamax) 25 MG tablet Take 1 tablet (25 mg) by mouth Once per day for 7 days. 7 tablet 0 No current facility-administered medications on file prior to visit. Review of Systems Constitutional: Negative for chills, fever and weight loss. HENT: Negative for ear pain, postnasal drip, rhinorrhea and sore throat. Respiratory: Positive for cough. Negative for hemoptysis, shortness of breath and wheezing. Cardiovascular: Negative for chest pain. Gastrointestinal: Negative for heartburn. Musculoskeletal: Positive for myalgias. Skin: Negative for rash. Neurological: Negative for headaches. Objective BP (!) 129/92 (BP Location: Right arm, Patient Position: Sitting, BP Cuff Size: Adult) Pulse 105 Temp 98.2 ??F (36.8 ??C) (Oral) Resp 21 Ht 4' 11 (1.499 m) Wt 133 lb (60.3 kg) SpO2 99% BMI 26.86 kg/m?? Physical Exam Constitutional: General: She is not in acute distress. Appearance: Normal appearance. She is not ill-appearing, toxic-appearing or diaphoretic. HENT: Head: Normocephalic. Nose: Nose normal. Cardiovascular: Rate and Rhythm: Normal rate. Pulmonary: Effort: Pulmonary effort is normal. Musculoskeletal: Cervical back: Normal range of motion. Neurological: General: No focal deficit present. Mental Status: She is alert. Assessment/Plan Diagnoses and all orders for this visit: Viral URI with cough Comments: Supportive care: fluids, rest at home, Tea w/ honey Call the office if the symtpoms are worse of not resolved in the next week or so. Sore throat - POCT Rapid Covid-19 BinaxNOW - POCT Rapid Influenza A FREED ID NOW - POCT Rapid Influenza B FREED ID NOW - POCT Rapid Strep A FREED ID NOW documented in this encounter Plan of Treatment Not on file documented as of this encounter Procedures Procedure Name Priority Date/Time Associated Diagnosis Comments POCT INFLUENZA A (ID NOW RAPID MOLECULAR) Routine 04/05/2024 6:23 PM EST Sore throat POCT INFLUENZA B (ID NOW RAPID MOLECULAR) Routine 04/05/2024 6:22 PM EST Sore throat POC FREED ID NOW STREP A Routine 04/05/2024 6:21 PM EST Sore throat POCT RAPID COVID ANTIGEN Routine 04/05/2024 6:21 PM EST Sore throat documented in this encounter Results * POCT Rapid Influenza A FREED ID NOW (04/05/2024 6:23 PM EST) Influenza A Negative Negative, Indeterminate [facility] QC Media Lot # [id number] [facility] Lot# Expiration Date [facility] Swab 04/05/2024 6:23 PM EST Nancy Mcbride MD POINT OF CARE TEST ENTER/ED IT ORDERABLES Final Result Performing Organization Address [facility] Co de Phone Number [facility] [address] [place] [phone] * POCT Rapid Influenza B FREED ID NOW (04/05/2024 6:22 PM EST) [facility] Influenza B Negative Negative, Indeterminate [facility] QC Media Lot # [id number] [facility] Lot# Expiration Date [facility] Swab 04/05/2024 6:22 PM EST Nancy Mcbride MD POINT OF CARE TEST ENTER/ED IT ORDERABLES Final Result Performing Organization Address [facility] Co de Phone Number [facility] [address] [place] [phone] * POCT Rapid Strep A FREED ID NOW (04/05/2024 6:21 PM EST) [facility] Rapid Strep A Screen Negative Negative, None Detected QC Media Lot # [id number] Lot# Expiration Date Swab 04/05/2024 6:21 PM EST Nancy Mcbride MD POINT OF CARE TEST ENTER/ED IT ORDERABLES Final Result * POCT Rapid Covid-19 BinaxNOW (04/05/2024 6:21 PM EST) [facility] Rapid COVID Ag Negative QC Media Lot # [id number] Lot# Expiration Date Swab 04/05/2024 6:21 PM EST Nancy Mcbride MD POINT OF CARE TEST ENTER/ED IT ORDERABLES Final Result documented in this encounter Visit Diagnoses Diagnosis Viral URI with cough- Primary Sore throat Acute pharyngitis documented in this encounter Additional Health Concerns Assessment Noted Time PHQ-9 Depression Total Score: 13 025 9:27 AM EST documented as of this encounter Care Teams Bow Maker Gift Wrapping Relationship Specialty Start Date End Date Emilia Mena MD [address] [place] [phone] PCP - General Internal Medicine 01/07/23 documented as of this encounter
--- OUTSIDE RECORDS SUMMARY | 2024-04-14 17:09 | XMS_ITS | Encounter Summary ---
Author Organization [employer] Address [address] [facility] 7t [place] [address] Care Team Providers Care Aquatic Life Laborer Name Role Phone Emilia Mena MD Primary Care Pro vider Reason for Visit * Reason Comments GBOT F/U Encounter Details Date Type Department Care Team ([facility] Contact Info) Description 03/17/2024 9:00 AM EST Office Visit [facility] [address] [place] [phone] Justin Tucker MD [address] [place] [phone] Substance use disorder (Primary Dx) Social History Tobacco Use Types [...] with others, in a hotel, in a penitentiary, living outside on the street, on a [...] the past 12 months, has t he [employer], gas, oil or water [email or web address] threatened to shut off services in your home? No 12/02/2022 Depression Answer Date Recorded Patient Health Questionnaire-2 Score 3 03/16/2024 Comments No Sex and Gender Information Value Date Recorded Sex Assigned at Female 09/16/2022 2:23 PM EDT Legal Sex Female 2:22 PM EDT Gender Identity Female 09/16/2022 2:23 PM EDT Sexual Orientation Bisexual 12/04/2022 9: 43 AM EDT documented as of this encounter Progress Notes * Justin Tucker MD - 03/17/2024 9:00 AM EST TODAY GBAT VISIT 03/17/2024 Patient presents for Group-Based Addiction Treatment for GOLDY First GBAT meeting today Reviewed the group goals, expectations and policies Consented to the group treatment options Actively participated in the group discussion with the topic of: Strategies for Maintaining the Process of Recovery Following staff present at the visit: Physician, Latex Fashions Designer, Team RN, Clinician, and MedicalAssistant Opportunities provided to address individual medical/medication/ concerns States doing well without cravings or relapse Review of Systems Psychiatric/Behavioral: Negative for behavioral problems and dysphoric mood. The patient is not nervous/anxious. Physical Exam Constitutional: Appearance: Normal appearance. Pulmonary: Effort: Pulmonary effort is normal. Neurological: Mental Status: She is alert. Psychiatric: Mood and Affect: Mood normal. Behavior: Behavior normal. Alie was seen today for gbot f/u . Diagnoses and all orders for this visit: Substance use disorder (Primary) Patient presents for Group-Based Addiction Treatment of GOLDY Reviewed the group goals, expectations and policies Consented to the group treatment options Actively participated in the group discussed Future discussion topics reviewed Reviewed behavioral modification and accessing services Group counseling provided with a focus on support system, tools for achieving/maintaining recovery Reviewed barriers for these goals Discussed strategies to address when faced situations that may trigger use Mass MANAGER CHANGE reviewed Following staff present at the visit: Physician, Team RN, Clinician, Latex Fashions Designer and Dramatic Agent Follow up in 1 week for the next GBAT meeting This information has been disclosed to you from records protected by federal confidentiality rules (42 CFR Part 2). The federal rules prohibit you from making any further disclosure of information inthis record that identifies a patient as having or having had a substance use disorder either directly, by reference to publicly available information, or through verification of such identification by another person unless further disclosure is expressly permitted by the written consent of the individual whose information is being disclosed or as otherwise permitted by (see2.3.1). The federal rules restrict any use of the information to investigate or prosecute with regard to a crime any patient with a substance use disorder, except as provided at 2.12??(5) and 2.65. documented in this encounter Plan of Treatment Not on file documented as of this encounter Visit Diagnoses Diagnosis Substance use disorder- Primary documented in this encounter Additional Health Concerns Assessment Noted Time PHQ-9 Depression Total Score: 13 025 9:27 AM EST documented as of this encounter Care Teams Aquatic Life Laborer Relationship Specialty Start Date End Date Emilia Mena MD [address] [place] [phone] PCP - General Internal Medicine 01/07/23 documented as of this encounter
--- OUTSIDE RECORDS SUMMARY | 2024-04-14 17:09 | XMS_ITS | Encounter Summary ---
Author Organization [facility] Address [address] [place] [address] Care Team Providers Care Roofing Superintendent Name Role Phone Scotty Cruz MD Primary Care Provider Teri Manrique MD Primary Care Provider Un available Reason for Visit * Reason Onset Date Comments Form 11/15/2013 Encounter Details Date Type Department Care Team Description 11/15/2013 Telephone Medicine/Pediatrics - [address] [phone] Scotty Cruz MD Form Social History Tobacco [...] she needs today . Pt agrees to garbage pick up man today documented in this encounter Plan of Treatment Not on file documented as of this encounter Visit Diagnoses Not on filedocumented in this encounter Care Teams Roofing Superintendent Relationship Specialty Start Date End Date Scotty Cruz MD PCP - General Internal Medicine 01/21/12 01/20/14 Teri Doran MD PCP - General Internal Medicine 01/21/14 documented as of this encounter
--- OUTSIDE RECORDS SUMMARY | 2024-04-14 17:09 | XMS_ITS | Encounter Summary ---
Author Organization [facility] Address [address] [place] [address] Care Team Providers Care Stunt Performer Name Role Phone Teri Doran MD Primary Care Provider Un available Reason for Visit * Reason Onset Date Comments medication problems 09/03/2019 fluticasone (FLOVENT HFA) 110 MCG/ACT inhaler Encounter Details Date Type Department Care Team Description 09/03/2019 Telephone Medicine/Pediatrics - [address] [phone] Owen Sarah NP medication problems (fluticasone (FLOVENT HFA) 110 MCG/ACT inhaler) Social History Tobacco Use Types Packs/Day Years Used Date Smoking Tobacco: Some Days Cigarettes 0.3 16 Smokeless Tobacco: Former Alcohol Use Standard Drinks/Week Comments No 0 (1 standard drink = 0.6 oz pur e alcohol) Sex Assigned at Date Recorded Not on file documented as of this encounter Miscellaneous Notes * Telephone Encounter - Flaca Ruggiero MD - 09/03/2019 3:08 PM EDT Qvar sent in place of flovent * Telephone Encounter - Nanci Gary - 09/03/2019 1:42 PM EDT Who is calling? A pharmacist: Pharmacy: [facility] Pharmacist Name: Pharmacy Phone # Name of the medication fluticasone (FLOVENT HFA) 110 MCG/ACT inhaler What is the specific problem or interaction? Not covered by ins, please send alternative If the patient is having a problem with taking the med - how long has the problem been going on? N/A documented in this encounter Plan of Treatment Not on file documented as of this encounter Visit Diagnoses Not on filedocumented in this encounter Care Teams Stunt Performer Relationship Specialty Start Date End Date Teri Doran MD PCP - General Internal Medicine 01/21/14 documented as of this encounter
--- OUTSIDE RECORDS SUMMARY | 2024-04-14 17:09 | XMS_ITS | Encounter Summary ---
Author Organization [facility] Address [facility] [place] [address] Care Team Providers Care Hospice Spiritual Care Coordinator Name Role Phone Teri Doran MD Primary Care Provider Un available Encounter Details Date Type Department Care Team Description 05/17/2015 Director Fixed Income Report Medical Records [address] [place] [address] Waqas Chase MD Social History Tobacco Use [...] on filedocumented in this encounter Care Teams Hospice Spiritual Care Coordinator Relationship Specialty Start Date End Date Teri Doran MD PCP - General Internal Medicine 01/21/14 documented as of this encounter
--- OUTSIDE RECORDS SUMMARY | 2024-04-14 17:09 | XMS_ITS | Encounter Summary ---
Author Organization [employer] Address [address] [facility] [address] [place] [address] Care Team Providers Care Psychology Department Chair Name Role Phone Emilia Mena MD Primary Care Pro vider Reason for Visit * Reason Comments Med Refill Encounter Details Date Type Department Care Team ([facility] st Contact Info) Description 04/07/2024 Refill [facility] [address] [place] [address] Emilia Mena MD [address] [place] [address] Fibromyalgia Social History Tobacco Use Types Packs/Day Years [...] with others, in a hotel, in a intermediate, living outside on the street, on a [...] AM EDT documented as of this encounter Plan of Treatment Not on file documented as of this encounter Visit Diagnoses Diagnosis Fibromyalgia Unspecified myalgia and myositis documented in this encounter Additional Health Concerns Assessment Noted Time PHQ-9 Depression Total Score: 13 025 9:27 AM EST documented as of this encounter Care Teams Psychology Department Chair Relationship Specialty Start Date End Date Emilia Mena MD [address] [place] [phone] PCP - General Internal Medicine 01/07/23 documented as of this encounter
--- OUTSIDE RECORDS SUMMARY | 2024-04-14 17:09 | XMS_ITS | Encounter Summary ---
Author Organization [employer] Address [address] [facility] [address]t [place] [address] Care Team Providers Care Technical Sales Advisor Name Role Phone Emilia Mena MD Primary Care Pro vider Encounter Details Date Type Department Care Team (Latest Contact Info) Description 03/17/2024 Travel Social History Tobacco Use Types Packs/Day Years [...] with others, in a hotel, in a long-term, living outside on the street, on a [...] Diagnoses Not on filedocumented in this encounter Additional Health Concerns Assessment Noted Time PHQ-9 Depression Total Score: 13 025 9:27 AM EST documented as of this encounter Care Teams Technical Sales Advisor Relationship Specialty Start Date End Date Emilia Mena MD [address] [place] [phone] PCP - General Internal Medicine 01/07/23 documented as of this encounter
--- OUTSIDE RECORDS SUMMARY | 2024-04-14 17:09 | XMS_ITS | Encounter Summary ---
Author Organization [employer] Address [address] [facility] [address] [place] [address] Care Team Providers Care Laboratory Assistant Name Role Phone Emilia Mena MD Primary Care Pro vider Reason for Visit * Reason Comments [facility] Recovery Supports Encounter Details Date Type Department Care Team (Late st Contact Info) Description 03/16/2024 Patient Outreach [facility] [address] [place] [address] cSott Murray Recovery Supports Social History Tobacco Use Types Packs/Day Years [...] with others, in a hotel, in a snf, living outside on the street, on a [...] as of this encounter Progress Notes * Scott Murray - 03/16/2024 9:49 AM EST I met with Alie duarte. Setting: in person at [facility] Recovery Wellness Goals worked on: Social Stability Action taken/next steps: Offered person centered recovery support Additional comments: Center support Scott Murray documented in this encounter Plan of Treatment Not on file documented as of this encounter Visit Diagnoses Not on filedocumented in this encounter Additional Health Concerns Assessment Noted Time PHQ-9 Depression Total Score: 13 025 9:27 AM EST documented as of this encounter Care Teams Laboratory Assistant Relationship Specialty Start Date End Date Emilia Mena MD [address] [place] [phone] PCP - General Internal Medicine 01/07/23 documented as of this encounter
--- OUTSIDE RECORDS SUMMARY | 2024-04-14 17:09 | XMS_ITS | Encounter Summary ---
Author Organization [facility] Address [address] [place] [address] Care Team Providers Care Retail Receiving Clerk Name Role Phone Teri Doran MD Primary Care Provider Un available Encounter Details Date Type Department Care Team Description 02/21/2015 Release of Information Medical Records [address] [place] [phone] Abstract, Provider Social History Tobacco Use Types [...] on filedocumented in this encounter Care Teams Retail Receiving Clerk Relationship Specialty Start Date End Date Teri Doran MD PCP - General Internal Medicine 01/21/14 documented as of this encounter
--- OUTSIDE RECORDS SUMMARY | 2024-04-14 17:10 | XMS_ITS | Encounter Summary ---
Author Organization [employer] Address [address] [facility] [address] [place] [address] Care Team Providers Care Edging Machine Catcher Name Role Phone Emilia Mena MD Primary Care Pro vider Encounter Details Date Type Department Care Team (Late st Contact Info) Description 03/15/2024 7:00 PM EST Office Visit [facility] [address] [place], [place] [phone] Justin Tucker MD [address] [place] [phone] Situational anxiety (Primary Dx) Social History Tobacco Use Types [...] with others, in a hotel, in a correction, living outside on the street, on a [...] the past 12 months, has t he [employer], gas, oil or water [employer] threatened to shut off services in your [...] Sign Reading Time Taken Comments Blood Pressure 142/88 03/15/2024 6:54 PM EST Pulse 104 03/15/2024 6:54 PM EST Temperature 36.7 ??C (98.1 ??F) 03/15/2024 6:54 PM ES T Respiratory Rate 12 03/15/2024 6:54 PM EST Oxygen Saturation - - Inhaled Oxygen Concentration - - Weight - - Height - - Body Mass Index - - documented in this encounter Progress Notes * Justin Tucker MD - 03/15/2024 7:00 PM EST Subjective History was provided by the patient. Alie Kearney is a 38 y.o. female who presents for evaluation of anxiety symptoms. Patient reports her anxiety has gotten worse since she was assigned a new [facility] case assembler. Currently living in a correction with her 18-year-old child. Her two minor children are in [facility] care (12-year-old with the patient's mother; 2-year-old is with a separate foster care). Will have a visitation with them this week. Previous history of crack cocaine use, but has not used any for 3 months. Undergone IOP back in 11/2023. She previously volunteered to provide urine tox screens (negative per patient report). She is working hard to maintain her recovery, but states she has increased stress due to trying to accomplish all the things that she is being asked to do by the [facility]. She has a manager recovery. Also has an upcoming appointment with a therapist tomorrow. She has a court-appointment outreach worker. States she is safe to self and others. Not seeking any medication today. Objective Vitals: 03/15/24 1854 BP: (!) 142/88 Pulse: 104 Resp: 12 Temp: 98.1 ??F (36.7 ??C) TempSrc: Temporal Physical Exam Constitutional: General: She is not in acute distress. Appearance: Normal appearance. She is not ill-appearing, toxic-appearing or diaphoretic. HENT: Head: Normocephalic and atraumatic. Right Ear: External ear normal. Left Ear: External ear normal. Nose: Nose normal. Mouth/Throat: Pharynx: Oropharynx is clear. Eyes: Extraocular Movements: Extraocular movements intact. Conjunctiva/sclera: Conjunctivae normal. Pulmonary: Effort: Pulmonary effort is normal. Musculoskeletal: General: Normal range of motion. Cervical back: Neck supple. Neurological: General: No focal deficit present. Mental Status: She is alert and oriented to person, place, and time. Psychiatric: Mood and Affect: Mood normal. Behavior: Behavior normal. Comments: Anxious Diagnoses and all orders for this visit: Situational anxiety (Primary) Patient presents to [facility] due to situational anxiety related to losing custody of her two younger children DCF involved (12-year-old living with patient's mother; 2-year-old in a separate foster care) She is overwhelmed by all the additional requirements asked by the [facility] case assembler Has maintained her recovery and sobriety Undergone IOP (11/2023) Previously volunteered to provide urine tox screen Has a outreach worker Will be meeting with a new clinician tomorrow Met with [facility] CRS Die Drawing Checker last week Currently safe to self and others Living in a correction with her 18-year-old son Resource information provided, including Community Bill Of Materials Clerk Indications for UC/ER use reviewed Advised to contact the clinic if persistent or worsening symptoms documented in this encounter Plan of Treatment Not on file documented as of this encounter Visit Diagnoses Diagnosis Situational anxiety- Primary documented in this encounter Additional Health Concerns Assessment Noted Time PHQ-9 Depression Total Score: 7 12/05/19 9:28 AM EDT documented as of this encounter Care Teams Edging Machine Catcher Relationship Specialty Start Date End Date Emilia Mena MD [address] [place] [phone] PCP - General Internal Medicine 01/07/23 documented as of this encounter
--- OUTSIDE RECORDS SUMMARY | 2024-04-14 17:10 | XMS_ITS | Encounter Summary ---
Author Organization [facility] Address [facility] [place] [address] Care Team Providers Care Brick Or Block Maker Name Role Phone Teri Doran MD Primary Care Provider Un available Encounter Details Date Type Department Care Team Description 07/24/2015 MANAGER FOOD/[employer] Report Medical Records [address] [place] [address] Abstract, Provider Social History Tobacco Use Types [...] on filedocumented in this encounter Care Teams Brick Or Block Maker Relationship Specialty Start Date End Date Teri Doran MD PCP - General Internal Medicine 01/21/14 documented as of this encounter
--- OUTSIDE RECORDS SUMMARY | 2024-04-14 17:10 | XMS_ITS | Encounter Summary ---
Author Organization [employer] Address [address] [facility] 7t [place] [address] Care Team Providers Care Jet Inspector Name Role Phone Emilia Mena MD Primary Care Pro vider Reason for Visit * Reason Onset Date Comments New Patient 11/15/2022 Encounter Details Date Type Department Care Team (Late st Contact Info) Description 11/15/2022 Telephone [facility] [address] [place] [phone] Raj Dhillon MD [address] [place], [place] [phone] New Patient Social History Tobacco Use Types Packs/Day Years Used Date Smoking Tobacco: Every Day Cigarettes 1 27 Passive Smoke Exposure: Current Smokeless Tobacco: Never Alcohol Use Standard Drinks/Week Comments Never 0 (1 standard drink = 0.6 oz pur e alcohol) Comments No Sex and Gender Information Value Date Recorded Sex Assigned at Female 09/16/2022 2:23 PM EDT Legal Sex Female 2:22 PM EDT Gender Identity Female 09/16/2022 2:23 PM EDT Sexual Orientation Bisexual 12/04/2022 9: 43 AM EDT documented as of this encounter Miscellaneous Notes * Telephone Encounter - Mabel Fuentes - 11/15/2022 8:48 AM EDT Pt has been transfer over to wait list to 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 EFFECTIVE SINCE 11/15/2022 documented in this encounter Plan of Treatment Not on file documented as of this encounter Visit Diagnoses Not on filedocumented in this encounter Care Teams Jet Inspector Relationship Specialty Start Date End Date Emilia eMna MD [address] [place] [id number] PCP - General Internal Medicine 01/07/23 documented as of this encounter
--- OUTSIDE RECORDS SUMMARY | 2024-04-14 17:10 | XMS_ITS | Encounter Summary ---
Author Organization [employer] Address [address] [facility] 7t [place] [address] Care Team Providers Care Zinc Chloride Operator Name Role Phone Emilia Mena MD Primary Care Pro vider Encounter Details Date Type Department Care Team (Latest Contact Info) Description 03/15/2024 Travel Social History Tobacco Use Types Packs/Day [...] with others, in a hotel, in a longterm, living outside on the street, on a [...] documented as of this encounter Care Teams Zinc Chloride Operator Relationship Specialty Start Date End Date Emilia Mena MD [address] [place] [phone] PCP - General Internal Medicine 01/07/23 documented as of this encounter
--- OUTSIDE RECORDS SUMMARY | 2024-04-14 17:10 | XMS_ITS | Encounter Summary ---
Author Organization [facility] Address [facility] [place] [address] Care Team Providers Care Aircraft Ordnance Technician Name Role Phone Scotty Cruz MD Primary Care Provider Unavailab Teri Toribio MD Primary Care Provider Un available Encounter Details Date Type Department Care Team Description 07/20/2012 Aircraft Cylinder Mechanic Report Medical Records [address] [place] [address] Social History Tobacco Use Types Packs/Day Years [...] on filedocumented in this encounter Care Teams Aircraft Ordnance Technician Relationship Specialty Start Date End Date Scotty Cruz MD PCP - General Internal Medicine 01/21/12 01/20/14 Teri Doran MD PCP - General Internal Medicine 01/21/14 documented as of this encounter
--- OUTSIDE RECORDS SUMMARY | 2024-04-14 17:10 | XMS_ITS | Encounter Summary ---
Author Organization [facility] Address [address] [place] [address] Care Team Providers Care Retail Manager Name Role Phone Teri Doran MD Primary Care Provider Un available Encounter Details Date Type Department Care Team Description 05/13/2017 [facility] Medical Records [address] [place] [address] Abstract, Provider Social History Tobacco Use Types [...] filedocumented in this encounter Care Teams Retail Manager Relationship Specialty Start Date End Date Teri Doran MD PCP - General Internal Medicine 01/21/14 documented as of this encounter
--- OUTSIDE RECORDS SUMMARY | 2024-04-14 17:10 | XMS_ITS | Encounter Summary ---
Author Organization [employer] Address [address] [facility] [address] [place] [address] Care Team Providers Care Fresh Work Wrapper Layer Name Role Phone Emilia Mena MD Primary Care Pro vider Reason for Referral * Consultation (Routine) - Pending Review Specialty Diagnoses / Procedures Referred By Dali lebron Referred To Contact Orthopaedic Surgery Diagnoses Chronic pain of left knee Abbe Keller MD [address] [place] [phone] Phone: tel: fax: Referral ID Status Reason Start Date Expiration Date Visits Requested Visits Authorized [id number] Pending Review Specialty Services Required 04/14/2024 04/14/2025 1 1 Reason for Visit * Reason Comments Knee Pain Encounter Details Date Type Department Care Team (Late st Contact Info) Description 04/14/2024 2:20 PM EST Office Visit [facility] [address] [place] [phone] Chronic pain of left knee (Primary Dx); Tobacco dependence Social History Tobacco Use Types Packs/Day Years [...] with others, in a hotel, in a assisted, living outside on the street, on a [...] Sign Reading Time Taken Comments Blood Pressure 112/70 04/14/2024 1:53 PM EST Pulse 82 04/14/2024 1:53 PM EST Temperature 36.5 ??C (97.7 ??F) 04/14/2024 1:53 PM ES T Respiratory Rate 18 04/14/2024 1:53 PM EST Oxygen Saturation 98% 04/14/2024 1:53 PM EST Inhaled Oxygen Concentration - - Weight 62.7 kg (138 lb 3.2 oz) 04/14/2024 1:53 P M EST Height - - Body Mass Index 27.91 04/05/2024 6:16 PM EST documented in this encounter Plan of Treatment Scheduled Referrals Name Type Priority Associated Diagnoses Order Schedule Referral to Orthopaedic Surgery Outpatient Referral Routine Chronic pain of left knee Expected: 04/14/2024 (Approximate), Expires: 04/14/2025 documented as of this encounter Procedures Procedure Name Priority Date/Time Associated Diagnosis Comments XR KNEE 3 VIEWS LEFT Routine 04/14/2024 2:15 PM EST Chronic pain of left knee documented in this encounter Results * XR Knee 3 Views Left (04/14/2024 2:15 PM EST) Anatomical Region Laterality Modality Lower Extremities, Knee Left [facility] 04/14/2024 2:15 PM EST Narrative 04/14/2024 2:43 PM EST ?[facility] ?[address] ?[place] [address] ?XRay Report ? Signed ? Patient: Alie Kearney ?MR#: [id number] ?? [id number] ? : 1985 ?Acct:[id number] ? Age/Sex: 38 / F ?ADM Date: 04/14/24 ? Loc: [facility] ? Attending Dr: Abbe Keller MD ? Ordering Physician: ABBE KELLER MD ?? Date of Service: 04/14/24 ?? Procedure(s): XR knee LT 3V ?? Accession Number(s): [id number] ? cc: ABBE KELLER MD ? EXAMINATION: ?? XR KNEE, LEFT ? CLINICAL INFORMATION: ?? PAIN ? COMPARISON: ?? Atraumatic left knee pain ? TECHNIQUE: ?? Three views of the left knee. ? FINDINGS: ?? No fracture or joint effusion. Alignment is anatomic. Joint spaces are ?? maintained. No abnormal soft tissue calcification. ? XR/XR knee LT 3V ?? IMPRESSION: ?? Normal left knee. ? Electronically signed by: ??Chase Alba MD ??04/14/2024 02:40 PM EST RP ? Dictated By: ?Alba,Chase S MD ? Signed By: ?<Electronically signed by Chase S Alba, MD in OV> ?04/14/ 1440 ? DD/ 1415 ? TD/TT: 04/14/ 1425 ? Sap Manager: MSM ? Procedure Note Justin, Image - 04/14/[address] [address] XRay Report Signed Patient: Alie Kearney JMR#: [id number] : 1985Acct:[id number] Age/Sex: 38 / FADM Date: 04/14/24 [facility]: Abbe Keller MD Ordering Physician: ABBE KELLER MD Date of Service: 04/14/24 Procedure(s): XR knee LT 3V Accession Number(s): [id number] cc: ABBE KELLER MD EXAMINATION: XR KNEE, LEFT CLINICAL INFORMATION: PAIN COMPARISON: Atraumatic left knee pain TECHNIQUE: Three views of the left knee. FINDINGS: No fracture or joint effusion. Alignment is anatomic. Joint spaces are maintained. No abnormal soft tissue calcification. XR/XR knee LT 3V IMPRESSION: Normal left knee. Electronically signed by: Chase Willis MD 04/14/2024 02:40 PM EST Dictated By: Chase Willis MD Signed By: <Electronically signed by Chase Willis MD in OV> 04/14/24 1440 DD/ 1415 TD/TT: 04/14/24 1425 Sap Manager: SCARLETT Abbe Keller MD IMG XR PROCEDURES Edited Result - Final documented in this encounter Visit Diagnoses Diagnosis Chronic pain of left knee- Primary Tobacco dependence Tobacco use disorder documented in this encounter Additional Health Concerns Assessment Noted Time PHQ-9 Depression Total Score: 13 025 9:27 AM EST documented as of this encounter Care Teams Fresh Work Wrapper Layer Relationship Specialty Start Date End Date Emilia Mena MD [address] [place] [phone] PCP - General Internal Medicine 01/07/23 documented as of this encounter
--- OUTSIDE RECORDS SUMMARY | 2024-04-14 17:10 | XMS_ITS | Clinical Summary ---
Author Organization [email or web address] Address [address] [facility] [address] [place] [address] Care Team Providers Care Admin Secretary Name Role Phone Emilia Mena MD Primary Care Pro vider Allergies Active Allergy Reactions Criticality Noted Date Comments Hydrocodone-Acetaminophen Unknown Medium 01/24/2012 Other reaction(s): vomiting Skin rash, pruritus, vomiting Skin rash, pruritus, vomiting Medications * This document contains information received from the source organization and may not represent a complete record from that organization. Levonorgestrel 20 MCG/DAY intrauterine device 1 each by Intrauterine route. Active loratadine (Claritin) 10 MG tablet Take 1 tablet (10 mg) by mouth Once per day. 30 tablet 10/24/19 24 Active albuterol 108 (90 Base) MCG/ACT inhaler Inhale 1 puff every 6 (six) hours if needed for wheezing. 18 g 2 10/24/19 24 Active DULoxetine (Cymbalta) [address] capsuleIndicati ons:Depression with anxiety TAKE 1 CAPSULE BY MOUTH EVERY DAY IN THE MORNING 90 capsule 10/24/19 24 Active topiramate (Topamax) 25 MG tabletIndicatio ns:Mood swings Take 1 tablet (25 mg) by mouth Once per day for 7 days. 7 tablet 02/09/20 24 Active pregabalin (Lyrica) 300 MG capsuleIndicati ons:Fibromyalgi a TAKE 1 CAPSULE BY MOUTH TWICE DAILY 60 capsule 04/08/19 25 Active nicotine polacrilex (Commit) 4 MG lozenge Dissolve 1 lozenge (4 mg) in the mouth every 2 (two) hours if needed for smoking cessation. 100 lozenge 04/15/19 25 04/04/ 2025 Active acetaminophen (Tylenol) 500 MG tablet Take 2 tablets (1,000 mg) by mouth every 6 (six) hours if needed for moderate pain or fever for up to 25 doses. 30 tablet 04/15/19 25 Active ibuprofen 400 MG tablet Take 1 tablet (400 mg) by mouth every 6 (six) hours if needed for moderate pain or fever for up to 30 doses. 30 tablet 04/15/19 25 Active lidocaine (Lidoderm) 5 % patch Apply 1 patch topically Once per day. Remove & discard patch within 12 hours or as directed by MD. 30 patch 2 04/15/19 25 2025 Active pregabalin (Lyrica) 300 MG capsuleIndicati ons:Fibromyalgi a TAKE 1 CAPSULE BY MOUTH TWICE DAILY 60 capsule 2 10/20/19 24 2024 Discontinued Active Problems Problem Noted Date Diagnosed Date Moderate depressive disorder 03/16/2024 Assessment & Plan (03/16/2024 10:19 AM EST): During IBH Consult Alie presenting with depressed mood, crying spells , irritable mood, loss of interests/pleasure , sense of isolation/loneliness , change in appetite or weight reduce appetite, changes in sleep difficulty falling asleep and difficulty staying asleep , psychomotor agitation, fatigue/loss of energy, inappropriate/excessive guilt , difficulty concentrating, excessive worry/anxiety, difficulty controlling worry, anxiety/worry associated to restlessness and/or feeling keyed-up/On edge , easily fatigued , difficulty concentrating and/or mind going blank , irritability, muscle tension , and sleep disturbance difficulty falling asleep and difficulty staying asleep , and Fear , and Recurrent panic attacks (abrupt surge of intese earl or discomfort that reaches peak within minutes and during which time the following occur (4 or more) palpitations, sweating, trembling/shaking, sensation of shortness of breath/smothering, Chest pain/discomfort, fear of losing control, At least one of the attacks has been followed by 1 month of Persistent concern/worry of panic attacks or their consequences ; for a period of 18+ mo, for most or all symptoms in the context of living in skilled nursing, DCF case, chronic pain. PLAN: Continue with current services (defined as services in the past 12 months) Behavioral Health Integration Plan Internal Follow up with [facility] Panic attacks 03/16/2024 Upper respiratory symptom 10/25/2023 Housing problems 07/24/2023 GATO (generalized anxiety disorder) 05/30/2023 Overview (09/16/2022): Paninc attacks 1 or 2 times per month. In counseling at the [facility], counselor is Erika PERRY telepsychiatry thru [facility] Assessment & Plan (06/10/2023 12:13 PM EDT): During IBH Consult Alie presenting with excessive worry/anxiety, difficulty controlling worry, restless/keyed up/On edge, easily fatigued, difficulty concentrating/Mind going blank , irritability, muscle tension, and sleep disturbance difficulty falling asleep; for a period of 18+ mo, for all symptoms in the context of financial concern and housing. Alie reports increase of symptoms. She has psych provider and therapist with [facility]; request change care to different agency. Currently living in a skilled nursing placement with her children. On medication to treat symptoms. PLAN: (check all that apply) New/Additional Services needed PCP management Off-site services for BH. Alie is currently engaged in MH services with [facility], however, she wants to change care. Pt was educated on the importance on continuation of care with agency and current wait list with external agencies. Sheltered homelessness 05/30/2023 Assessment & Plan (06/10/2023 12:13 PM EDT): During IBH Consult Alie presenting with excessive worry/anxiety, difficulty controlling worry, restless/keyed up/On edge, easily fatigued, difficulty concentrating/Mind going blank , irritability, muscle tension, and sleep disturbance difficulty falling asleep; for a period of 18+ mo, for all symptoms in the context of financial concern and housing. Alie reports increase of symptoms. She has psych provider and therapist with [facility]; request change care to different agency. Currently living in a skilled nursing placement with her children. On medication to treat symptoms. PLAN: (check all that apply) New/Additional Services needed PCP management Off-site services for BH. Alie is currently engaged in MH services with [facility], however, she wants to change care. Pt was educated on the importance on continuation of care with agency and current wait list with external agencies. Health care maintenance 12/06/2022 Asthma 09/16/2022 Overview (09/16/2022): Mild intermittent Cervical intraepithelial neoplasia grade 2 09/16 Diabetes, gestational 09/16/2022 Overview (09/16/2022): Resolved after No current symptoms Posttraumatic stress disorder 11/14/2015 Fibromyalgia 11/26/2013 Overview (09/16/2022): Treated with lyrica and amitriptyline in the past. Assessment & Plan (09/16/2022 8:04 PM EDT): Will refill Lyrica 300 mg 1 tab every 12 hours Discontinue amitriptyline since it is sedating F/u PRN with new PCP Insomnia 06/08/2013 Hemorrhoids 10/08/2012 Tobacco abuse disorder 01/24/2012 Overview (03/03/2023): Pharmacotherapy: (Updated 03/03/2022) - None History: (Updated 03/03/2022) - Smoking 1/2 to 1PPD since 1993. 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 Date Type Department Care Team Description 04/14/2024 2:20 PM EST [facility] [address] [address] Chronic pain of left knee (Primary Dx); Tobacco dependence 04/07/[address] [address] Emilia Mena MD Fibromyalgia 04/05/2024 6:00 PM EST [facility] [address] [address] Nancy Mcbride MD Viral URI with cough (Primary Dx); Sore throat 03/17/2024 9:00 AM EST Office Visit [address] [address] Justin Tucker MD Substance use disorder (Primary Dx) 03/17/2024 Travel 03/16/2024 Patient Outreach [address] [address] Scott Murray [facility] 03/15/2024 7:00 PM EST Office Visit [address] [address] Justin Tucker MD Situational anxiety (Primary Dx) 03/15/2024 Travel 03/11/2024 Patient Outreach [address] [address] Dimas Gandara [facility] 02/19/2024 9:00 AM EST [facility] [address] [address] Nedra Munguia DO Vaginal discharge (Primary Dx); Acute UTI 02/09/2024 11:00 AM EST Office Visit [address] [address] Félix Jameson MD Urinary frequency (Primary Dx); Suprapubic discomfort; Mood swings from Last 3 Months Immunizations Name Administration Dates Next Due Hep B, adult 07/08/2023,02/06/2023,01/07/2023 Influenza injectable quadriv alent preservative free 12/04/2022,12/24/2019,01/14/2019 Influenza, IIV3, injectable 12/24/2019,1 ,12/30/2014,12/17,11/16/2012,11/11/2011,11/04/2011 Pneumococcal Conjugate PCV 20 12/04/2022 Pneumococcal Polysaccharide PPSV23 12/20/2013 Rabies, IM Diploid Cell Culture 07/06/2023 Tdap 09/18/2022, 3,11/11/2011,11/03 Tetanus Toxoid, Unspecified 01/20/2014 Family History Medical History Relation Name Comments depression,anxiety,PTSD Brother depression,anxiety,PTSD Father heart dx Father lung ca-smoker Father Relation Name Status Comments Brother Father Social History Tobacco Use Types Packs/Day Years Used Date Smoking Tobacco: Every Day Cigarettes 1 27 Passive Smoke Exposure: Current Smokeless Tobacco: Never Tobacco Cessation:Ready to Q uit: Not Asked; Counseling Given: Not Answered Comments:Started smoking 10 years of age ,smoking [...] with others, in a hotel, in a skilled nursing, living outside on the street, on a [...] Orientation Bisexual 12/04/2022 9: 43 AM EDT Last Filed Vital Signs Vital Sign Reading [...] oz) 04/14/2024 1:53 P M EST Height 149.9 cm (4' 11 ) 04/05/2024 6:16 PM EST Body Mass Index 27.91 04/05/2024 6:16 PM EST Plan of Treatment Health Maintenance Due Date Last Done Comments Alcohol/Substance Use Screening 1995 Family Planning (PISQ) 05/20/1998 Hepatitis A Vaccines (1 of 2 - Risk 2-dose series) 05/20/2002 Pap Smear 05/20/2004 Cervical Cancer Screening 05/20/2013 HPV/Cotest 05/20/2013 Mammogram 2023 COVID-19 Vaccine ( season) 2023 12/26/2021, 07/13/2020, 06/14/2020 Influenza Vaccine (#1) 2023 3, 12/24/2019, 12/24/2019, Additional history exists SDOH Screening 04/01/2024 04/01/2023 Depression Monitoring (PHQ-9) 09/13/2024 03/16/2024, 03/16/2024 Depression Screening 03/16/2025 03/16/2024, 03/16/19 Tobacco Screening 04/14/2025 04/14/2024 Lipid Panel 12/05/2027 12/04/2022 DTaP/Tdap/Td Vaccines (6 - Td or Tdap) 09/18/2032 09/18/2022, 03/22/2022, 01/20/2014, Additional history exists Zoster Vaccines (1 of 2) 05/20/2033 RSV Patients and Patients Aged 60 years or older (1 - 1-dose 75+ series) 05/20/2058 Pneumococcal Vaccine: Pediatrics (0 to 5 Years) and At-Risk Patients (6 to 49) Years) Completed 12/04/2022, 12/20/2013 Hepatitis B Vaccines Completed 07/08/2023, 02/06/2023, 01/07/2023 HIV Screening Completed 09/16/2023, 12/04/2022 Hepatitis C Screening Completed 09/16/2023, 023 HIB Vaccines Aged Out No longer eligi ble based on patient's age to complete this topic HPV Vaccines Aged Out No longer eligi ble based on patient's age to complete this topic IPV Vaccines Aged Out No longer eligi ble based on patient's age to complete this topic Meningococcal Vaccine Aged Out No rosana vianey eligible based on patient's age to complete this topic RSV under 20 months Aged Out No longe r eligible based on patient's age to complete this topic Rotavirus Vaccines Aged Out No longer eligible based on patient's age to complete this topic Procedures Procedure Name Priority Date/Time Associated Diagnosis Comments XR KNEE 3 VIEWS LEFT Routine 04/14/2024 2:15 PM EST Chronic pain of left knee POCT INFLUENZA A (ID NOW RAPID MOLECULAR) Routine 04/05/2024 6:23 PM EST Sore throat POCT INFLUENZA B (ID NOW RAPID MOLECULAR) Routine 04/05/2024 6:22 PM EST Sore throat POC FREED ID NOW STREP A Routine 04/05/2024 6:21 PM EST Sore throat POCT RAPID COVID ANTIGEN Routine 04/05/2024 6:21 PM EST Sore throat POCT URINALYSIS DIPSTICK Routine 02/19/2024 9:22 AM EST Vaginal discharge CULTURE, URINE, ROUTINE Routine 02/19/2024 9:21 AM EST Vaginal discharge CHLAMYDIA/N. GONORRHOEAE RNA, TMA, UROGENITAL Routine 02/19/2024 9:21 AM EST Vaginal discharge BACTERIAL VAGINOSIS PANEL Routine 02/19/2024 9:21 AM EST Vaginal discharge CULTURE, URINE, ROUTINE Routine 02/09/2024 11:30 AM EST Urinary frequency CHLAMYDIA/N. GONORRHOEAE RNA, TMA, UROGENITAL Routine 02/09/2024 11:30 AM EST Urinary frequency POCT URINALYSIS DIPSTICK Routine 02/09/2024 11:28 AM EST Urinary frequency HEPATITIS C AB W/REFL TO HCV RNA, QN, PCR Routine 09/16/2023 11:53 AM EDT Vaginal discharge HIV 1/2 ANTIGEN/ANTIBODY, FOURTH GENERATION W/RFL Routine 09/16/2023 11:53 AM EDT Vaginal discharge LIPID PANEL, STANDARD Routine 12/04/2022 10:42 AM EDT Annual physical exam from Last 3 Months or Most Recently Relevant to Health Maintenance Results * XR Knee 3 Views Left (04/14/2024 2:15 PM EST) Anatomical Region Laterality Modality Lower Extremities, Knee Left Radiogra phic Imaging 04/14/2024 2:15 PM EST Narrative 04/14/2024 2:43 PM EST ?[facility] ?[address] ?[place] [address] ?XRay Report ? Signed ? Patient: Kearney,Alie J ?MR#: [id number] ?? [id number] ? : 1985 ?Acct:[id number] ? Age/Sex: 38 / F ?ADM Date: 04/14/24 ? Loc: HO.HHCX ? Attending Dr: Abbe Keller MD ? Ordering Physician: ABBE KELLER MD ?? Date of Service: 04/14/24 ?? Procedure(s): XR knee LT 3V ?? Accession Number(s): [id number] ? cc: ABBE KELLER MD ? EXAMINATION: [...] left knee. ? Electronically signed by: ??Chase Willis MD ??04/14/2024 02:40 PM EST RP ? Dictated By: ?Chase Willis MD ? Signed By: ?<Electronically signed by Chase Willis MD in OV> ?04/14/24 1440 ? DD/ 1415 ? TD/TT: 04/14/24 1425 ? Cardiac Specialist: MSM ? Procedure Note Aleta Anderson - 04/14/[address] [address] XRay Report Signed Patient: Alie Kearney JMR#: [id number] : 1985Acct:[id number] Age/Sex: 38 / FADM Date: 04/14/24 Loc: HO.HHCX Attending Dr: Abbe Keller MD Ordering Physician: ABBE KELLER MD Date of Service: 04/14/24 Procedure(s): XR knee LT 3V Accession Number(s): [id number] cc: ABBE KELLER MD EXAMINATION: XR KNEE, LEFT CLINICAL INFORMATION: PAIN COMPARISON: Atraumatic left knee pain TECHNIQUE: Three views of the left knee. FINDINGS: No fracture or joint effusion. Alignment is anatomic. Joint spaces are maintained. No abnormal soft tissue calcification. XR/XR knee LT 3V IMPRESSION: Normal left knee. Electronically signed by: Chase Willis MD 04/14/2024 02:40 PM EST RP Dictated By: Chase Willis MD Signed By: <Electronically signed by Chase Willis MD in OV> 04/14/24 1440 DD/ 1415 TD/TT: 04/14/24 1425 Cardiac Specialist: MSM us Abbe Keller MD IMG XR PROCEDURES Edited Result - Final * POCT Rapid Influenza A FREED ID NOW (04/05/2024 6:23 PM EST) Influenza A Negative Negative, Indeterminate [facility] QC Media Lot # [id number] [facility] Lot# Expiration Date [facility] Swab 04/05/2024 6:23 PM EST us Nancy Mcbride MD POINT OF CARE TEST ENTER/ED IT ORDERABLES Final Result Performing Organization Address [facility] [[email or web address]] de Phone Number [facility] [address] [place] [phone] * POCT Rapid Influenza B FREED ID NOW (04/05/2024 6:22 PM EST) Influenza B Negative Negative, Indeterminate [facility] QC Media Lot # [id number] [facility] Lot# Expiration Date [facility] Swab 04/05/2024 6:22 PM EST us Nancy Mcbride MD POINT OF CARE TEST ENTER/ED IT ORDERABLES Final Result Performing Organization Address [facility] Co de Phone Number [facility] [address] [place] [address] [phone] * POCT Rapid Strep A FREED ID NOW (04/05/2024 6:21 PM EST) [facility] Rapid Strep A Screen Negative Negative, None Detected QC Media Lot # [id number] Lot# Expiration Date Swab 04/05/2024 6:21 PM EST Nancy Mcbride MD POINT OF CARE TEST ENTER/ED IT ORDERABLES Final Result * POCT Rapid Covid-19 BinaxNOW (04/05/2024 6:21 PM EST) [facility] Rapid COVID Ag Negative QC Media Lot # [id number] Lot# Expiration Date Swab 04/05/2024 6:21 PM EST Nancy Mcbride MD POINT OF CARE TEST ENTER/ED IT ORDERABLES Final Result * POCT urinalysis dipstick manually resulted (02/19/2024 9:22 AM EST) Only the most recent of2 resultswithin the time period is included. [facility] Color, UA Yellow Clarity, UA Clear Glucose, UA Negative Bilirubin, UA Negative Ketones, UA Negative Spec Grav, UA 1.020 Blood, UA Negative Negative, None Detected pH, UA 6.5 Protein, UA Negative Urobilinogen, UA 0.2 Leukocytes, UA Negative Negative, Rare, Trace Nitrite, UA Negative Negative, None Detected Urine 02/19/2024 9:22 AM EST Nedra Munguia DO POINT OF CARE TEST ENTER/MIRACLE T ORDERABLES Final Result * (ABNORMAL) Bacterial Vaginosis Panel (02/19/2024 9:21 AM EST) [facility] TRICHOMONAS VAGINALIS DETECTION BY PCR NOT DETECTED Not Detect [facility] BACTERIAL VAGINOSIS DETECTION BY PCR POSITIVE(A) Negative [facility] Comment:The BV organism targ ets of the Xpert Xpress MVP test can becommensal in women; Xpert Xpress MVP positive results forbacterial vaginosis should be considered in conjunction withother clinical and patient information to determine thedisease status. Organisms that are not detected by the XpertXpress MVP test have also been reported to be associatedwith BV and aerobic vaginitis.The Xpert Xpress MVP test performance has not been evaluatedin patients under the age of 14. NANCY GROUP DETECTION BY PCR NOT DETECTED Not Detect [facility] Nancy glab krusei PCR NOT DETECTED Not Detect [facility] Swab Vaginal structure / Unknown 02/19/2024 9:21 AM EST 02/19/2024 1:36 PM EST us Nedra Munguia DO LAB MICROBIOLOGY - GENERAL O RDERABLES Final Result [facility] [address] [place] [phone] * Chlamydia/N. Gonorrhoeae RNA, TMA, Urogenitial (02/19/2024 9:21 AM EST) Only the most recent of2 resultswithin the time period is included. CT PCR NOT DETECTED Not Detect. [facility] Comment:A not detected test result does not exclude the possibilityof infection because test results can be affected byimproper specimen collection, concurrent antibiotic therapy,or the number of organisms in the specimen which may bebelow the sensitivity of the test. As with many diagnostictests, results from the Xpert CT/NG assay should beinterpreted in conjunction with other laboratory andclinical data available to the clinician.Xpert CT/NG performance has not been evaluated in patientsless than 14 years of age. The assay should not be used forthe evaluationof suspected sexual abuse or for other medico-legalindications. Additional testing is recommended in anycircumstance when false positive or false negative resultscould lead to adverse medical, social or psychologicalconsequences. NG PCR NOT DETECTED Not Detect. [facility] Comment:A not detected test result does not exclude the possibilityof infection because test results can be affected byimproper specimen collection, concurrent antibiotic therapy,or the number of organisms in the specimen which may bebelow the sensitivity of the test. As with many diagnostictests, results from the Xpert CT/NG assay should beinterpreted in conjunction with other laboratory andclinical data available to the clinician.Xpert CT/NG performance has not been evaluated in patientsless than 14 years of age. The assay should not be used forthe evaluationof suspected sexual abuse or for other medico-legalindications. Additional testing is recommended in anycircumstance when false positive or false negative resultscould lead to adverse medical, social or psychologicalconsequences. Swab (Vaginal Swab) 02/19/2024 9:21 AM EST 02/19/2024 1:36 PM EST [facility] - 02/20/2024 2:07 AM EST Vaginal Nedra Munguia DO LAB MICROBIOLOGY - GENERAL O RDERABLES Final Result Performing Organization Address City/[facility] Co de Phone Number [facility] [address] [place] [phone] * Culture, Urine, Routine (02/19/2024 9:21 AM EST) Only the most recent of2 resultswithin the time period is included. Urine Urine specimen obtained by clean catch procedure / Unknown 02/19/2024 9:21 AM EST 02/19/2024 1:36 PM EST Comment:[facility] - 02/20/2024 11:50 AM EST Urine Culture No growth. Specimen Source: Urine clean catch Nedra Munguia DO LAB MICROBIOLOGY - GENERAL O RDERABLES Final Result Performing Organization Address [facility] Co de Phone Number [facility] [address] [place] [phone] * Hepatitis C Antibody with Reflex to HCV, RNA, Quantitative, Real-Time PCR (09/16/2023 11:53 AM EDT) [facility] Hepatitis C Antibody Nonreactive Nonreactive [facility] Comment:Antibodies to HCV no t detected; does not exclude early acuteHCV infection. Blood Venous blood specimen / Unknown 09/16/2023 11:53 AM EDT 09/16/2023 1:20 PM EDT us Abbe Keller MD LAB BLOOD ORDERABLES Final Resul t Performing Organization Address City/[facility]/ZIP Co de Phone Number [facility] [address] [place] [phone] * HIV-1/2 Antigen and Antibodies, Fourth Generation, with Reflexes (09/16/2023 11:53 AM EDT) [facility] HIV AB/AG Nonreactive Nonreactive [facility] Comment:HIV-1 p24 Ag and/or HIV-1/HIV-2 Ab not detected.A test result that is nonreactive does not exclude thepossibility of exposure to or infection with HIV-1 and/orHIV-2. Nonreactive results in this assay for individualswith prior exposure to HIV-1 and/or HIV-2 may be due toantigen and antibody levels that are below the limit ofdetection of this assay.The [employer] HIV Ag/Ab Combo assay result andsupplemental assay results should be interpreted inconjunction with the patient's clinical presentation,history and other laboratory results. If the results areinconsistent with clinical evidence, additional testing issuggested to confirm the result. Blood Venous blood specimen / Unknown 09/16/2023 11:53 AM EDT 09/16/2023 1:20 PM EDT us Abbe Keller MD LAB BLOOD ORDERABLES Final Resul t Performing Organization Address City/[facility]/ZIP Co de Phone Number [facility] [address] [place] [phone] * (ABNORMAL) Lipid Panel, Standard (12/04/2022 10:42 AM EDT) [facility] Triglycerides 76 <150 mg/dL [facility] Comment:Desirable Triglyceri de: less than 150 mg/dLBorderline High Triglyceride 150-199 mg/dLHigh Triglyceride: 200-499 mg/dLVery High Triglyceride: greater than or equal to 5OO mg/dL Cholesterol 186 <200 mg/dL [facility] Comment:Desirable Cholestero l: less than 200 mg/dLBorderline High Cholesterol: 200-239 mg/dLHigh Cholesterol: greater than 239 mg/dL LDL Cholesterol Calculated 126(H) <100 mg/dL [facility] Comment:Desirable LDL: less than 100 mg/dLNear Optimal/Above Optimal LDL: 110- 129 mg/dLBorderline High LDL: 130-159 mg/dLHigh LDL: 160-189 mg/dLVery High LDL: greater than or equal to 190 mg/dL HDL Cholesterol 45 >40 mg/dL [facility] Comment:Desirable HDL: great er than 40 mg/dL Note: This HDL assay may give artificially low results in patients with liver disease. Blood Venous blood specimen / Unknown 12/04/2022 10:42 AM EDT 12/04/2022 11:42 AM EDT us Emilia Marocs MD LAB BLOOD ORDERAB LES Final Result [facility] [address] [place] [phone] from Last 3 Months or Most Recently Relevant to Health Maintenance Insurance [facility] C3 Care Teams Admin Secretary Relationship Specialty Start Date End Date Emilia Mena MD 28 [place] [phone] PCP - General Internal Medicine 01/07/23
--- OUTSIDE RECORDS SUMMARY | 2024-04-14 17:10 | XMS_ITS | Encounter Summary ---
Author Organization [facility] Address [address] [place] [address] Care Team Providers Care Manufacturing Technology Analyst Name Role Phone Teri Doran MD Primary Care Provider Un available Encounter Details Date Type Department Care Team Description 11/21/2015 [facility] Medical Records [address] [place] [address] Abstract, Provider Social History Tobacco Use Types [...] on filedocumented in this encounter Care Teams Manufacturing Technology Analyst Relationship Specialty Start Date End Date Teri Doran MD PCP - General Internal Medicine 01/21/14 documented as of this encounter
--- OUTSIDE RECORDS SUMMARY | 2024-04-14 17:10 | XMS_ITS | Encounter Summary ---
Author Organization [employer] Address [address] [facility] 7t [place] [address] Care Team Providers Care Male Infertility Specialist Name Role Phone Emilia Mena MD Primary Care Pro vider Reason for Visit * Reason Comments Med Refill Encounter Details Date Type Department Care Team ([facility] st Contact Info) Description 04/16/2023 Refill [facility] MED[facility]INE [address] [place] [address] Emilia Mena MD [address] [place] [address] Fibromyalgia Social History Tobacco Use Types Packs/Day [...] Answer Date Recorded Patient Health Questionnaire-9 Score 7 12/04/2022 Patient Health Questionnaire-9 Score 7 12/04/2022 Last PHQ-9: Questionnaire Data Not on file 1 Housing Stability Answer Date Recorded What is your housing situation today? I do not have housing (Staying with others, in a hotel, in a retirement, living outside on the street, on a [...] Answer Date Recorded Patient Health Questionnaire-2 Score 2 12/04/2022 Comments No Sex and Gender Information Value [...] documented as of this encounter Care Teams Male Infertility Specialist Relationship Specialty Start Date End Date Emilia Mena MD [address] [place] [phone] PCP - General Internal Medicine 01/07/23 documented as of this encounter
--- OUTSIDE RECORDS SUMMARY | 2024-04-14 17:10 | XMS_ITS | Encounter Summary ---
Author Organization [employer] Address [address] [facility] 7[address] [place] [address] Care Team Providers Care Red Hat Linux Administrator Name Role Phone Emilia Mena MD Primary Care Pro vider Reason for Visit * Reason Comments Med Refill Encounter Details Date Type Department Care Team ([facility] st Contact Info) Description 07/23/2023 Refill [facility] MED[facility]INE [address] [place] [address] Emilia Mena MD [address] [place] [address] Fibromyalgia Social History Tobacco Use Types Packs/Day [...] with others, in a hotel, in a chcf, living outside on the street, on a [...] documented as of this encounter Care Teams Red Hat Linux Administrator Relationship Specialty Start Date End Date Emilia Mena MD [address] [place] [phone] PCP - General Internal Medicine 01/07/23 documented as of this encounter
== END 2024-04-14 14:14 | disposition home or self-care (01) ==
LOC: HO.HHCX 14:13
PROVIDERS: Visit Provider Emergency Medicine
DX: M25.562 Pain in left knee (principal); G89.29 Other chronic pain
CPT/HCPCS: 73562

== ENCOUNTER → 2024-04-14 14:15 | Outpatient (BNV) | payer MEDICAID, SELFPAY | PROVIDERS: Visit Provider Radiology Diagnostic Radiology | DX: M25.562 Pain in left knee (principal) | CPT/HCPCS: 73562 ==

== ENCOUNTER 2024-06-25 12:34 | Outpatient (REF) | payer MEDICAID, SELFPAY | END 2024-06-25 12:35 | disposition home or self-care (01) | LOC: HO.HOSX 12:34 | PROVIDERS: Visit Provider Physician Assistant | DX: Z13.89 Encounter for screening for other disorder (principal) ==

== ENCOUNTER 2024-09-15 11:11 | Outpatient (REF) | payer MEDICAID, SELFPAY ==
--- OUTSIDE RECORDS SUMMARY | 2024-09-14 18:40 | XMS_ITS | Encounter Summary ---
Author Organization [employer] Address [address] [facility] 7[address] [place] [address] Care Team Providers Care Agricultural Appraiser Name Role Phone Emilia Mena MD Primary Care Pro vider Reason for Visit * Reason Comments Cough Vaginitis/Bacterial Vaginosis Encounter Details Date Type Department Care Team ([facility] st Contact Info) Description 09/14/2024 6:40 PM EDT Office Visit [facility] [address] [place] [phone] Erika Dailey MD [address] [place] [address] [phone] BV (bacterial vaginosis) (Primary Dx); Persistent cough Social History Tobacco Use Types Packs/Day Years Used Date Smoking Tobacco: Every Day Cigarettes 1 27 Passive Smoke Exposure: Current Smokeless Tobacco: Never Tobacco Cessation:Ready to Q uit: Not Asked; Counseling Given: Not Answered Comments:Started smoking 10 years of age ,smoking 30<----10 to 20 cig a day ,smoking for [...] with others, in a hotel, in a long term, living outside on the street, on a beach, in a car, or in a park 07/01/[address] you li ve. Do you have problems with any of the following? None of the above 07/01/2024 Food Insecurity Answer Date Recorded Within the past 12 months, y ou worried that your food would run out before you got money to buy more: Never True 07/01/2024 Within the past 12 months,th e food you bought just didn't last and you didn't have enough money to get more: Never True Transportation Answer Date Recorded In the past 12 months, has l ack of transportation kept you from medical appts, meetings, work or from getting things needed for daily living? No 07/01/2024 Utilities Answer Date Recorded In the past 12 months, has t he electric, gas, oil or water company threatened to shut off services in your home? No 07/01/2024 Depression Answer Date Recorded Patient Health Questionnaire-2 Score 3 03/16/2024 Internet Access Answer Date Recorded Internet Access Q1 Yes 07/01/2024 Internet Access Q2 Not on file 07/01/2024 Comments No Sex and Gender Information Value Date Recorded Sex Assigned at Female 09/16/2022 2:23 PM EDT Legal Sex Female 2:22 PM EDT Gender Identity Female 09/16/2022 2:23 PM EDT Sexual Orientation Bisexual 12/04/2022 9: 43 AM EDT documented as of this encounter Last Filed Vital Signs Vital Sign Reading Time Taken Comments Blood Pressure 126/78 09/14/2024 6:55 PM EDT Pulse 90 09/14/2024 6:55 PM EDT Temperature 36.7 C (98.1 F) 09/14/2024 6:55 PM EDT Respiratory Rate 16 09/14/2024 6:55 PM EDT Oxygen Saturation 97% 09/14/2024 6:55 PM EDT Inhaled Oxygen Concentration - - Weight 62.6 kg (138 lb) 09/14/2024 6:55 PM EDT Height - - Body Mass Index 27.87 07/01/2024 10:23 AM EDT documented in this encounter Progress Notes * Sunni Velazquez - 09/14/2024 6:40 PM EDT Subjective Patient ID: Alie Kearney is a 39 y.o. female who presents to walk in clinic for Cough and Vaginitis/Bacterial Vaginosis. Pt reports she has had BV 3-4 times and gets it periodically. Last had it in Feb 2024. She notes often it happens after her period and she had some spotting a couple days ago as she has the Mirena IUD. Pt reports itching, fouls smelling discharge and vaginal burning. She also reports she has been coughing up black sputum. Pt notes she is going through PAWS, and hasbeen smoking more due to that. She denies ay chest pain. Pt reports she has been coughing for over a month. She describes it as wet and frothy. Pt notes she has enough Narcan. She is in a support field [facility]. Pt says she has a therapist and sees her regularly. Review of Systems Constitutional: Negative for fever and unexpected weight change. Respiratory: Positive for cough. Negative for shortness of breath. Cardiovascular: Negative for chest pain. Gastrointestinal: Negative for abdominal pain. Genitourinary: Positive for vaginal discharge. Negative for difficulty urinating. Objective Visit Vitals BP 126/78 (BP Location: Left arm, Patient Position: Sitting, BP Cuff Size: Adult) Pulse 90 Temp 98.1 ??F (36.7 ??C) (Temporal) Resp 16 Body mass index is 27.87 kg/m??. Physical Exam Constitutional: Appearance: Normal appearance. Cardiovascular: Rate and Rhythm: Normal rate and regular rhythm. Heart sounds: Normal heart sounds. Pulmonary: Effort: Pulmonary effort is normal. Breath sounds: Normal breath sounds. No wheezing, rhonchi or rales. Abdominal: Palpations: Abdomen is soft. Tenderness: There is no abdominal tenderness. Musculoskeletal: Cervical back: Normal range of motion and neck supple. Neurological: General: No focal deficit present. Mental Status: She is alert. Psychiatric: Behavior: Behavior normal. Assessment & Plan BV (bacterial vaginosis) Hx of recurrent BV. Reports couple of days of sxs. -Sent out swabs and STI testing. -Prescribed antifungal 09/14/24 Orders: Bacterial Vaginosis metroNIDAZOLE (Metrogel) 0.75 % vaginal gel; Insert one applicator into vagina at bedtime for 7 nights Chlamydia/N. Gonorrhoeae RNA, TMA, Vaginal Persistent cough Coughing >3 weeks. No other systemic symptoms. Lungs CTA on exam. -CXR already ordered by PCP, pt agreed to do tomorrow. -Started on abx empirically. Orders: POCT Rapid COVID Ag Influenza B (ID NOW Rapid Molecular) Influenza A (ID NOW Rapid Molecular) azithromycin (Zithromax) 250 MG tablet; Take 2 tablets (500 mg) by mouth Once per day for 1 day, THEN 1 tablet (250 mg) Once per day for 4 days. Future Appointments Date Time Provider Department Center 11/11/2024 9:30 AM Emilia Marcos MD MEDICINE [facility] ISunni, am serving as a scribe to document services personally performed by Dr. Swartz, based on the patient's response to questions by provider and providers statements to me. documented in this encounter Plan of Treatment Upcoming Encounters Date Type Department Care Team (Late st Contact Info) Description 11/11/2024 9:30 AM EDT Office Visit [facility] [address] [place] [address] [phone] Emilia Mena MD [address] [place] [address] [phone] Scheduled Orders Name Type Priority Associated Diagnoses Orde r Schedule Bacterial Vaginosis Microbiology Routine BV (bacterial vaginosis) Ordered: 09/14/2024 Chlamydia/N. Gonorrhoeae RNA, TMA, Vaginal Microbiology Routine BV (bacterial vaginosis) Ordered: 09/14/2024 documented as of this encounter Procedures Procedure Name Priority Date/Time Associated Diagnosis Comments POCT INFLUENZA B (ID NOW RAPID MOLECULAR) Routine 09/14/2024 7:04 PM EDT Persistent cough POCT INFLUENZA A (ID NOW RAPID MOLECULAR) Routine 09/14/2024 7:04 PM EDT Persistent cough POCT RAPID COVID ANTIGEN Routine 09/14/2024 7:04 PM EDT Persistent cough documented in this encounter Results * Influenza A (ID NOW Rapid Molecular) (09/14/2024 7:04 PM EDT) Influenza A Negative Negative, Indeterminate [facility] Swab 09/14/2024 7:04 PM EDT Erika Dailey MD POINT OF CARE TEST ENTER/E DIT ORDERABLES Final Result Performing Organization Address [facility]/ZIP Co de Phone Number [facility] [address] [place] [phone] * Influenza B (ID NOW Rapid Molecular) (09/14/2024 7:04 PM EDT) Influenza B Negative Negative, Indeterminate [facility] Swab 09/14/2024 7:04 PM EDT Erika Dailey MD POINT OF CARE TEST ENTER/E DIT ORDERABLES Final Result Performing Organization Address [facility] Co de Phone Number [facility] [address] [place] [phone] * POCT Rapid COVID Ag (09/14/2024 7:04 PM EDT) Rapid COVID Ag Negative Swab 09/14/2024 7:04 PM EDT Erika Dailey MD POINT OF CARE TEST ENTER/E DIT ORDERABLES Final Result documented in this encounter Visit Diagnoses Diagnosis BV (bacterial vaginosis)- Primary Unspecified vaginitis and vulvovaginitis Persistent cough documented in this encounter Additional Health Concerns Assessment Noted Time PHQ-9 Depression Total Score: 13 03/16/2 025 9:27 AM EST documented as of this encounter Care Teams Agricultural Appraiser Relationship Specialty Start Date End Date Emilia Mena MD [address] [place] [phone] PCP - General Internal Medicine 01/07/23 documented as of this encounter
[2024-09-15 12:46] LABS: Bacterial Vaginosis PCR POSITIVE (Negative); Candida Group PCR NOT DETECTED (Not Detect); Candida glab krusei PCR NOT DETECTED (Not Detect); Trichomonas vaginalis PCR NOT DETECTED (Not Detect)
[2024-09-15 13:13] LABS: CT PCR NOT DETECTED (Not Detect.); NG PCR NOT DETECTED (Not Detect.)
== END 2024-09-15 11:12 | disposition home or self-care (01) ==
LOC: HO.HHCLNP 11:11
PROVIDERS: Visit Provider Family Medicine
DX: Z11.3 Encounter for screening for infections with a predominantly sexual mode of transmission (principal); Z11.8 Encounter for screening for other infectious and parasitic diseases; Z11.2 Encounter for screening for other bacterial diseases; N76.0 Acute vaginitis; B96.89 Other specified bacterial agents as the cause of diseases classified elsewhere
CPT/HCPCS: 81515; 87491; 87591

== ENCOUNTER 2024-09-23 | Outpatient (REF) | payer MEDICAID, SELFPAY ==
--- NOTE | ~2024-09-23 | XR_ITS ---
EXAMINATION: XR CHEST CLINICAL INFORMATION: pt with chronic cough COMPARISON: None available. TECHNIQUE: 2 views of the chest were obtained. FINDINGS: No consolidation, pleural effusion or pneumothorax. Questionable 2 mm pulmonary granuloma, right lower hemithorax. Cardiomediastinal silhouette size is normal. Osseous structures are intact. XR/XR chest 2V IMPRESSION: No acute airspace disease. Questionable granuloma, right lower lung lobe. Electronically signed by: Baldev Meléndez MD 09/23/2024 03:46 PM EDT
== END 2024-09-23 00:01 | disposition home or self-care (01) ==
LOC: HO.XRAY
PROVIDERS: PCP Student in an Organized Health Care Education/Training Program; Visit Provider Radiology Diagnostic Radiology
DX: R05.3 Chronic cough (principal)
CPT/HCPCS: 71046

== ENCOUNTER → 2024-09-23 15:13 | Outpatient (BNV) | payer MEDICAID, SELFPAY | PROVIDERS: PCP Student in an Organized Health Care Education/Training Program; Visit Provider Radiology Diagnostic Radiology | DX: R05.3 Chronic cough (principal) | CPT/HCPCS: 71046 ==

== ENCOUNTER 2024-10-16 09:06 | Outpatient (REF) | payer MEDICAID, SELFPAY ==
--- NOTE | ~2024-10-16 | CT_ITS ---
CLINICAL HISTORY: COUGH,SMOKER CT chest without contrast Comparison: None provided Findings: The heart size is normal. The visualized thyroid and mediastinum are unremarkable. No consolidation or effusion. The visualized upper abdomen is unremarkable. The bones are intact. IMPRESSION: 1. Unremarkable chest CT. This document has been electronically signed by: Mj Jensen MD on 10/18/2024 10:17:20
--- OUTSIDE RECORDS SUMMARY | 2024-10-16 09:08 | XMS_ITS ---
[facility] Care Team Organization Name Specialty Phone Email Start Date End Da te [facility] Daphney Reis DO Primary Care 12/18/202109/10
== END 2024-10-16 09:07 | disposition home or self-care (01) ==
LOC: HO.CT 09:06
PROVIDERS: PCP Student in an Organized Health Care Education/Training Program; Visit Provider Student in an Organized Health Care Education/Training Program
DX: R05.3 Chronic cough (principal); R93.89 Abnormal findings on diagnostic imaging of other specified body structures; F17.200 Nicotine dependence, unspecified, uncomplicated
CPT/HCPCS: 71250

== ENCOUNTER → 2024-10-16 09:08 | Outpatient (BNV) | payer MEDICAID, SELFPAY | PROVIDERS: PCP Student in an Organized Health Care Education/Training Program; Visit Provider Radiology Diagnostic Radiology | DX: R05.9 Cough, unspecified (principal); Z72.0 Tobacco use | CPT/HCPCS: 71250 ==